=== PATIENT | male | born 1935 | race Caucasian/White ===

== ENCOUNTER 2018-07-15 15:43 | Emergency (ER) | payer MEDICARE, SELFPAY ==
[2018-07-15 15:44] VITALS: BP 165/87; PULSE 90; RESP 20; TEMP 36.3; O2SAT 97; BMI 22.4
[2018-07-15 16:36] LABS: Absolute Lymphocyte Count 1.96 X10^3/ul (0.83-4.51); Absolute Neutrophil Count 3.9 X10^3/uL (2.0-7.7); Basophil# 0.05 X10^3/uL; Basophil% 0.7 % (0-1); Eosinophil# 0.34 X10^3/uL; Eosinophils% 4.9 % (0-5); Hematocrit 42.6 % (40-54); Hemoglobin 13.2 g/dl (13.0-16.5); Lymphocyte # 1.96 X10^3/ul (4.0); Lymphocyte % 28.2 % (19-41); Mean Corpuscular Hgb 26.7 pg (27.0-32.0); Mean Corpuscular Volume 86.1 fL (80-94); Mean Platelet Vol. 10.5 fl (6.2-12.0); Monocyte% 10.1 % (0-10); Neutrophil # 3.89 X10^3/uL (2.7-7.7); Platelet Count 309 K/mm3 (150-450); RBC Distribution Width CV 13.8 % (11.6-14.6); RBC Distribution Width SD 43.5 fl (35.1-43.9); Red Blood Count 4.95 M/mm3 (4.6-6.2)
[2018-07-15 16:38] LABS: Bacteria 0 SEEN /hpf (None Seen); Mucous, Urine 0 SEEN /hpf (<or=2+); White Blood Cells 0 SEEN /hpf (0-5)
[2018-07-15 16:40] LABS: POSITIVE COUNT NO; POSITIVE DIFFERENTIAL NO; POSITIVE MORPHOLOGY NO
[2018-07-15 16:41] LABS: Color, Urine Yellow (Yellow); Glucose, Dipstick Normal (Normal); Ketone-Dipstick Negative (Negative); Leukocyte Esterase-Dipstick Negative /ul (Negative); Nitrite-Dipstick Negative (Negative); Occult Blood-Urine 250 /ul (Negative); Protein-Dipstick Negative (Negative); Urine Bilirubin Dipstick Negative (Negative); Urine Clarity Sl. Cloudy (Clear); Urine Urobilinogen Normal (Normal); Urine pH 6.5 (5.0 - 8.0)
[2018-07-15 16:47] LABS: Red Blood Cells-Urine > 100 SEEN /hpf (0-5); Squamous Epithelial Cells - UA 0-5 SEEN /hpf (0-5)
[2018-07-15 16:48] LABS: Amorphous Sediment 1+ URATE
[2018-07-15 16:49] LABS: Anion Gap 7 (5-15); BUN 18 mg/dL (7-18); BUN/Creat Ratio 21.8 RATIO (10-20); Calcium,Total 8.2 mg/dL (8.5-10.1); Chloride 104 mmol/L (98-107); Creatinine, Serum 0.82 mg/dL (0.70-1.30); EST Glomerular Filtration Rate 95 mL/min (>60); Est Glom Filt Rate - Afr Amer 115 mL/min (>60); Estimated Creatinine Clearance 63.76 ml/min; Glucose 109 mg/dL (74-106); Potassium 3.9 mmol/L (3.5-5.1); Sodium Level 137 mmol/L (136-145)
--- NOTE | 2018-07-15 17:06 | ED.VIS.GEN ---
History of Present Illness Chief Complaint: Complaint Detail of Chief Complaint: Gross hematuria Informant: Patient, Family Onset: Today Context: Sudden Onset Timing: Intermittent Quality: Urinated blood this morning Location: At home Current Severity: Unknown Maximum Severity: Moderate Worsened by: Nothing Relieved by: Nothing Associated Symptoms: Nothing Narrative: Patient is an 83-year-old male with history of benign prostatic hypertrophy who presents with gross painless hematuria. He denies back or flank pain. He denies testicular pain. He denies fever, chills night sweats. He has no other complaints. He is on no anticoagulant. He is not on Plavix. He does take a baby aspirin a day. He has seen Dr. Knox in the past. Prior similar symptoms: No Recent Illness/Hospitalization: No - Past Medical History (1) Benign prostatic hyperplasia Status: Chronic Past Medical History - Allergies and Home Meds Allergies/Adverse Reactions: Allergies No Known Allergies Allergy (Verified 07/15/18 15:44) Primary Care Physician: Hans Ochoa MD [Primary Care Provider] - Prior records reviewed: Yes Surgical History: noncontributory Lives: With Family Smoking Status: Never smoker Alcohol: None Drugs: None Review of Systems General: Denies: Chills, Fever, Sweats Eyes: Denies: Visual changes - bilaterally, Blurred vision - left, Diplopia ENT: Denies: Bilateral ear pain, Rhinorrhea, Sore throat Cardiovascular: Denies: Chest pain, Palpitations Respiratory: Denies: Dyspnea, Cough, Dyspnea on exertion Gastrointestinal: Denies: Abdominal pain, Nausea, Vomiting, Diarrhea, Melena, Hematochezia Genitourinary: Reports: Hematuria - One episode this morning. Denies: Dysuria, Frequency Musculoskeletal: Denies: Myalgias, Arthralgias, Back pain, Swelling, Extremity Pain Skin: Denies: Rash, Wounds Neurological: Denies: Headache, Weakness, Numbness Hematologic: Denies: Easy bruising, Easy bleeding Physical Exam Vital Signs/Narrative: Vital Signs Temp Pulse Resp BP Pulse Ox 07/15/18 15:44 97.3 F L 90 20 H 165/87 H 97 Inital Vital Signs reviewed: Yes General: Well nourished, Well developed, No Acute Distress, - - Patient is very hard of hearing. He is wearing his hearing aids. Head: Normocephalic, Atraumatic Eyes: Perrl, EOMI. Negative for: Pale conjunctiva ENT: Moist mucous membranes, No rhinorrhea Neck: Supple, Nontender, No lymphadenopathy, No JVD Cardiovascular: Regular rate, Regular rhythm, No murmurs, Normal S1, Normal S2 Respiratory: No distress, CTA bilaterally, Chest nontender Abdomen: Soft, Nontender, Nondistended, Normal bowel sounds, No masses Back: Nontender Skin: Normal color, No rash. Negative for: Cyanosis, Jaundice Neurological: Alert, Oriented x3, Cranial nerves II-XII grossly intact, Normal Strength, Normal Sensation Psychological: Normal affect Diagnostic/Tx/Re-eval Laboratory Results 07/15/18 07/15/18 07/15/18 16:24 16:24 16:34 WBC 7.0 RBC 4.95 Hgb 13.2 Hct 42.6 MCV 86.1 MCH 26.7 L MCHC 31.0 L RDW 13.8 RDW Differential 43.5 Plt Count 309 MPV 10.5 Immature Gran % (Auto) 0.100 Neut % (Auto) 56.0 Lymph % (Auto) 28.2 [place] % (Auto) 10.1 H Eos % (Auto) 4.9 Baso % (Auto) 0.7 Absolute Neuts (auto) 3.9 Absolute Lymphs (auto) 1.96 Total Counted Not Reportable Sodium 137 Potassium 3.9 Chloride 104 Carbon Dioxide 26.0 Anion Gap 7 BUN 18 Creatinine 0.82 Estim Creat Clear Calc 63.76 Est GFR (MDRD) Af Amer 115 Est GFR (MDRD) Non-Af 95 BUN/Creatinine Ratio 21.8 H Glucose 109 H Calcium 8.2 L Urine Color Yellow Urine Clarity Sl. Cloudy Urine pH 6.5 Ur Specific [place] 1.010 Urine Protein Negative Urine Glucose (UA) Normal Urine Ketones Negative Urine Occult Blood 250 H Urine Nitrite Negative Urine Bilirubin Negative Urine Urobilinogen Normal Ur Leukocyte Esterase Negative Urine RBC > 100 SEEN Urine WBC 0 SEEN Ur Squamous Epith Cells 0-5 SEEN Amorphous Sediment 1+ URATE Urine Bacteria 0 SEEN Urine Mucus 0 SEEN - Medical Decision Making With history of benign prostatic hypertrophy and gross hematuria most likely cause is related to his prostate. Since he has no constitutional symptoms or urinary symptoms other than gross blood will obtain UA, CBC and BMP to assess H&H, renal function and to determine if he has an infection or not. Since there is greater than 100 WBCs culture was sent. He was treated with a short course of Macrobid. He was referred to Dr. Jack for follow-up. ED Disposition - Plan for ED Patient: Disposition: Home or Assisted Living Diagnosis: Pyuria, History of hematuria, Benign prostatic hyperplasia Instructions: ED Hematuria Prescriptions: Nitrofurantoin Macrocrystals [Macrobid] 100 mg PO Q12 #10 cap Referrals: Hans Ochoa MD [Primary Care Provider] - Shlomo Jack MD [STAFF PHYSICIAN] - 3-5 Days
[2018-07-15] MEDS: Nitrofurantoin Macrocrystals 100 MG Capsule PO (17:18)
[2018-07-15 17:28] VITALS: RESP 18; O2SAT 97
== END 2018-07-15 17:29 | disposition home or self-care (01) ==
PROVIDERS: Emergency Provider Emergency Medicine; Family Provider Family Medicine; PCP Family Medicine
DX: N39.0 Urinary tract infection, site not specified (principal); R31.0 Gross hematuria; N40.0 Benign prostatic hyperplasia without lower urinary tract symptoms; Z79.82 Long term (current) use of aspirin; Z79.899 Other long term (current) drug therapy
CPT/HCPCS: 80048; 81001; 85025; 87086; 99283

== ENCOUNTER 2018-08-31 09:44 | Day surgery (SDC) | payer MEDICARE, SELFPAY ==
[2018-08-24 11:04] VITALS: BP 188/87; PULSE 91; RESP 16; TEMP 36.9; O2SAT 95; BMI 21.6
[2018-08-24 11:47] LABS: Bacteria 0 SEEN /hpf (None Seen); Mucous, Urine 0 SEEN /hpf (<or=2+); Red Blood Cells-Urine 0 SEEN /hpf (0-5); Squamous Epithelial Cells - UA 0 SEEN /hpf (0-5); White Blood Cells 0 SEEN /hpf (0-5)
[2018-08-24 12:41] LABS: Hematocrit 43.5 % (40-54); Hemoglobin 13.7 g/dl (13.0-16.5); Mean Corp Hgb Conc 31.5 g/gl (32-36); Mean Corpuscular Hgb 26.8 pg (27.0-32.0); Mean Platelet Vol. 10.9 fl (6.2-12.0); Platelet Count 366 K/mm3 (150-450); RBC Distribution Width CV 13.6 % (11.6-14.6); RBC Distribution Width SD 42.3 fl (35.1-43.9); Red Blood Count 5.12 M/mm3 (4.6-6.2); White Blood Count 6.5 K/mm3 (4.4-11.0)
[2018-08-24 12:48] LABS: Color, Urine Yellow (Yellow); Glucose, Dipstick Normal (Normal); Ketone-Dipstick Negative (Negative); Leukocyte Esterase-Dipstick Negative /ul (Negative); Nitrite-Dipstick Negative (Negative); Occult Blood-Urine Negative /ul (Negative); Protein-Dipstick Negative (Negative); Scan Indicated on CBC? Y/N NO; Urine Bilirubin Dipstick Negative (Negative); Urine Clarity Clear (Clear); Urine Urobilinogen Normal (Normal); Urine pH 6.5 (5.0 - 8.0)
[2018-08-24 13:02] LABS: Anion Gap 6 (5-15); BUN 23 mg/dL (7-18); Calcium,Total 8.6 mg/dL (8.5-10.1); Chloride 105 mmol/L (98-107); Creatinine, Serum 0.92 mg/dL (0.70-1.30); EST Glomerular Filtration Rate 84 mL/min (>60); Est Glom Filt Rate - Afr Amer 101 mL/min (>60); Estimated Creatinine Clearance 54.96 ml/min; Glucose 102 mg/dL (74-106); Potassium 3.9 mmol/L (3.5-5.1); Sodium Level 139 mmol/L (136-145)
--- NOTE | 2018-08-24 15:48 | SDCEKG_ITS ---
Test Reason : Blood Pressure : / mmHG Vent. Rate : 079 BPM Atrial Rate : 079 BPM P-R Int : 146 ms QRS Dur : 078 ms QT Int : 368 ms P-R-T Axes : 071 017 049 degrees QTc Int : 421 ms Sinus rhythm with marked sinus arrhythmia Otherwise normal ECG Confirmed by DONNELL BYNUM, COBY ([id number]), science editor KAILEE BRASHER ([id number]) on 08/27/2018 10:36:29 AM Referred By: Shlomo Jack Confirmed By:COBY JACOBO MD
[2018-08-31] VITALS (12 sets, daily range): BP systolic 118–163; BP diastolic 64–97; PULSE 87–100; RESP 14–18; TEMP 36.3–36.8; O2SAT 92–97; BMI 20.6
--- NOTE | 2018-08-31 11:50 | PROS_PTH ---
PATIENT: OMKAR LÓPEZ [place] [facility] [place][id number] AGE/SX: 83/M ROOM: RE08/31/[address]: Dr. Shlomo Jack MD : [id number] BED: DIS: 09/02/2018 SPEC #: [id number] RECD: 09/03/18 07:15 STATUS: ALESSANDRO HORTA #: [id number] JOSE DANIEL: 08/31/18 11:[address]: Shlomo Jack DEPT: SURGICAL PATHOLOGY RECD BY: Michael Bright ENTERED: 09/03/18 11:32 SP TYPE: TURP OTHR DR: Dr. Hans Ochoa MD Tissues: Prostate, NOS Procedures: Surgery Specimen Level IV HEADER OPERATION: Cysto, TUR, prostate, Olympus PRE-OP DIAGNOSIS: BPH with obstruction TISSUE SUBMITTED: Prostate chips MICROSCOPIC DIAGNOSIS Prostate chips, TUR: Benign prostatic hyperplasia, glandular and stromal type. Focal chronic inflammation and basal cell hyperplasia. SJ:linda 09/04/18 MICROSCOPIC DESCRIPTION Slides are reviewed. GROSS DESCRIPTION Received is one container labeled with the patient's name and designated prostate chips. The specimen consists of multiple irregular fragments of pink-porras, rubbery, soft tissue that in aggregate weigh 21 gm and measure in aggregate 7 x 7 x 3 cm. The entire specimen is submitted in 12 cassettes. / EARLINE:linda 09/03/18 TC:5 CPT: 10611
[2018-08-31] MEDS: Cefazolin 2 GM in 0.9% Normal Saline 100 ML IV (12:05)
[2018-08-31] MEDS: Lubricating Jelly 60 GM Tube 30 GM TOPICAL (12:09)
--- NOTE | 2018-08-31 13:19 | DCINST_ITS ---
Discharge Diet: No Restrictions Discharge Activity: Return to Normal Activity, May Not Drive - for 2 days. Call your doctor if your incision/area has: Continuous Slow Oozing, Sudden Increased Bleeding, Increased Pain/ Swelling, Increased Redness, Foul Smelling Discharge, Swelling at the incision site Instructions: Transurethral Resection of the Prostate (TURP): Home Recovery Allergies/Adverse Reactions: Allergies No Known Allergies Allergy (Verified 08/31/18 10:25) Medications to take at Discharge Dutasteride 0.5 mg PO QHS 07/15/18 Naproxen Sodium [Aleve] 220 mg PO PRN PRN 08/24/18 Ciprofloxacin [Cipro] 500 mg PO BID #20 tablet 08/31/18 Ibuprofen 600 mg PO Q6H PRN PRN #20 tablet 08/31/18 The following prescriptions were given: Ibuprofen 600 mg PO Q6H PRN PRN #20 tablet PRN Reason: Pain Ciprofloxacin [Cipro] 500 mg PO BID #20 tablet Primary Care Physician: Hans Ochoa MD [Primary Care Provider] - Test Results: Test results from this visit will be discussed in further detail at your follow- up appointment, if applicable. Please Follow Up With: Shlomo Jack MD When: in 2 weeks, please call to make an appointment.
--- NOTE | 2018-08-31 13:20 | PCM.OPRPT ---
Report of Operation Date of Procedure: 08/31/18 Pre-Operative Diagnosis: BPH with obstruction Post-Operative Diagnosis: The same Surgery/Procedure Performed:: Transurethral resection of the prostate Description of Surgical Findings:: 83-year-old male who had a TURP very long time ago significant regrowth of the prostate on the dome of the prostate a lot of obstructive tissue 83-year-old male taken back to the operating room at the smooth induction of anesthesia was placed in dorsolithotomy position the penis testicles are prepped and draped in usual sterile fashion placed a 24 [place] noncontinuous flow resectoscope into the bladder all the prostate tissue was coming from the roof I then did a resection of all the prostate tissue from the roof very middle resection it in the lateral austin and on the floor I resected back to the verumontanum then switched to the button vaporizing smooth out the resection had a really close resection to the sphincter but the sphincter looked intact, I then placed the catheter in the bladder continues bladder irrigation the urine is fairly bloody and he was taken back to the PACU in good condition plan to continue with bladder irrigation the urine is clear and then go home with a catheter to let it heal up. 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 Type of Anesthesia:: General Drains: 22fr 3 way - Admit VTE Documentation VTE Present on Admission: No VTE Mechan Device Prophylaxis: SCD's
[2018-08-31] MEDS: oxyCODONE 5 MG Tablet PO (14:10)
[2018-08-31] MEDS: 0.9% Normal Saline 1,000 ML 75 ML IV (14:50)
[2018-08-31] MEDS: Ciprofloxacin 400 MG/200 ML BAG 200 MG IV (18:05)
[2018-08-31] MEDS: Docusate Sodium 100 MG Capsule 200 MG PO (21:21)
[2018-09-01 03:20] VITALS: BP 128/59; PULSE 75; RESP 18; TEMP 36.7; O2SAT 97
[2018-09-01] MEDS: 0.9% Normal Saline 1,000 ML 75 ML IV ×2 (03:24→16:07)
[2018-09-01] MEDS: Acetaminophen 325 MG Tablet PO (04:25)
[2018-09-01] MEDS: Ciprofloxacin 400 MG/200 ML BAG 200 MG IV (05:04)
[2018-09-01 06:50] LABS: Hematocrit 33.7 % (40-54); Hemoglobin 10.5 g/dl (13.0-16.5); Mean Corp Hgb Conc 31.2 g/gl (32-36); Mean Corpuscular Hgb 26.5 pg (27.0-32.0); Mean Corpuscular Volume 85.1 fL (80-94); Platelet Count 229 K/mm3 (150-450); RBC Distribution Width CV 13.6 % (11.6-14.6); RBC Distribution Width SD 41.8 fl (35.1-43.9); Red Blood Count 3.96 M/mm3 (4.6-6.2); White Blood Count 6.1 K/mm3 (4.4-11.0)
[2018-09-01 06:51] LABS: Scan Indicated on CBC? Y/N NO
[2018-09-01 06:56] LABS: Anion Gap 4 (5-15); BUN 11 mg/dL (7-18); BUN/Creat Ratio 14.8 RATIO (10-20); Calcium,Total 7.5 mg/dL (8.5-10.1); Chloride 109 mmol/L (98-107); Creatinine, Serum 0.74 mg/dL (0.70-1.30); EST Glomerular Filtration Rate 107 mL/min (>60); Est Glom Filt Rate - Afr Amer 130 mL/min (>60); Estimated Creatinine Clearance 48.32 ml/min; Glucose 123 mg/dL (74-106); Potassium 3.7 mmol/L (3.5-5.1); Sodium Level 140 mmol/L (136-145)
[2018-09-01] MEDS: Pantoprazole Sodium 40 MG Tablet PO (09:03)
[2018-09-01] MEDS: Docusate Sodium 100 MG Capsule 200 MG PO (09:03)
[2018-09-01 09:41] VITALS: BP 112/48; PULSE 83; PULSE 90; RESP 16; TEMP 36.3; O2SAT 94
--- NOTE | 2018-09-01 11:18 | NURSING ---
1000 pt c/o abd pain, abd felt firm, hoff is not draining, flushed hoff and it started running again. no clots. However, urine returned and didn't c/o abd pain.
[2018-09-01 14:19] VITALS: BP 134/55; PULSE 99; RESP 18; TEMP 36.6; O2SAT 96
[2018-09-01 20:20] VITALS: BP 148/78; PULSE 95; RESP 20; TEMP 37.2; O2SAT 97
[2018-09-01 20:37] VITALS: PULSE 94
[2018-09-02 02:10] VITALS: BP 130/67; PULSE 100; RESP 20; TEMP 37.1; O2SAT 95
[2018-09-02] MEDS: 0.9% Normal Saline 1,000 ML 75 ML IV (06:28)
[2018-09-02 07:01] VITALS: O2SAT 94
[2018-09-02 09:02] VITALS: BP 147/79; PULSE 90; RESP 18; TEMP 36.8; O2SAT 97
[2018-09-02] MEDS: Pantoprazole Sodium 40 MG Tablet PO (09:13)
--- NOTE | 2018-09-02 13:25 | DS.PCM_ITS ---
Discharge Date and Diagnosis Date of Admission: 08/31/18 Date of Discharge: 09/02/18 - Secondary Discharge Diagnosis Chronic Problems Benign prostatic hyperplasia (Chronic) Hospital Course and Treatment Operations: TURP Procedures: None Summary of Care Provided: The patient is a 83 year old male with a large prostate and underwent a TURP on Monday was kept over for 48 hours for irrigation the urine today is now sanderson color but off irrigation he can go home with a catheter. - Physical Exam General: Alert, Oriented x3, Cooperative HEENT: Atraumatic, PERRLA, EOMI, Normocephalic Neck: Supple, No JVD, Negative Carotid Bruits Lungs: Clear to auscultation, Normal air movement Cardiovascular: Regular rate, No murmurs Abdomen: Bowel Sounds Present, Soft, Non Tender Extremities: No edema, Capillary Refill Less than 3 Seconds Skin: No rashes, No breakdown Musculoskeletal: No Tenderness to Palpation of Joints or Extremities Neurological: Cranial nerves II-XII grossly intact Psych/Mental Status: Normal Affect, Appropriate Vital Signs Temp Pulse Resp BP Pulse Ox 98.2 F 90 18 147/79 H 97 09/02/18 09:02 09/02/18 09:02 09/02/18 09:02 09/02/18 09:02 09/02/18 09:02 Oxygen Flow Rate (L/min) 2 Oxygen Delivery Method Room Air Weight: 58.967 kg Body Mass Index (BMI) 20.6 Intake and Output for Last 24 Hours 08/31/18 09/01/18 09/02/18 23:59 23:59 23:59 Intake Total 1521 / 1521 3726 / 3726 2829 / 2829 Output Total 3800 / 3800 9675 / 9675 1500 / 1500 Balance -2279 / -2279 -5949 / -5949 1329 / 1329 Discharge Diet: No Restrictions Discharge Activity: Return to Normal Activity, May Not Drive - for 2 days. Call your doctor if your incision/area has: Continuous Slow Oozing, Sudden Increased Bleeding, Increased Pain/ Swelling, Increased Redness, Foul Smelling Discharge, Swelling at the incision site Suture Line Care: Avoid Pulling/Pushing, Avoid Pinching/Bending Catheter: Silva to leg bag, Silva to large bag Drain: [place] Home Medications: Medications to take at Discharge Dutasteride 0.5 mg PO QHS 07/15/18 Naproxen Sodium [Aleve] 220 mg PO PRN PRN 08/24/18 Acetaminophen [Tylenol Extra Strength] 500 - 1,000 mg PO Q6H PRN PRN 08/31/18 Ibuprofen 600 mg PO Q6H PRN PRN #20 tablet 08/31/18 Following Prescrptions Were Given to Patient: Ibuprofen 600 mg PO Q6H PRN PRN #20 tablet PRN Reason: Pain Primary Care Physician: Hans Ochoa MD [Primary Care Provider] - Please Follow Up With: Shlomo Jack MD When: please call to make an appointment. Patient Instructions: Transurethral Resection of the Prostate (TURP): Home Recovery Medical Necessity - Tobacco Use Smoking Status: Current every day smoker Meaningful Use Info Meaningful Use Diagnoses (Choose all that apply): None applicable
[2018-09-02 14:16] VITALS: BP 140/72; PULSE 85; RESP 18; TEMP 36.7; O2SAT 96
== END 2018-09-02 14:18 | disposition home or self-care (01) ==
LOC: SDC 09:46 → AC 09:46 → MS3 12:32
PROVIDERS: Family Provider Family Medicine; PCP Family Medicine; Referring Provider Urology; Visit Provider Urology
PROC: (CPT 52630; principal; 2018-08-31 11:40)
DX: N41.1 Chronic prostatitis (principal); N40.1 Benign prostatic hyperplasia with lower urinary tract symptoms; N13.8 Other obstructive and reflux uropathy; R39.12 Poor urinary stream; R39.14 Feeling of incomplete bladder emptying; Z87.440 Personal history of urinary (tract) infections; Z87.891 Personal history of nicotine dependence
CPT/HCPCS: 00914; 52630; 36415; 80048; 81001; 85027; 86850; 86900; 87086; 87088; 88305; 93005; J7030; J7120; J0744; J2405

== ENCOUNTER 2018-09-04 01:43 | Emergency (ER) | payer MEDICARE, SELFPAY ==
[2018-08-31 15:39] VITALS: BMI 20.6
[2018-09-04 01:44] VITALS: BP 159/79; PULSE 91; RESP 18; TEMP 36.3; O2SAT 98; BMI 21.9
--- NOTE | 2018-09-04 03:01 | ED.DCSUM_ITS ---
- ER Visit Summary Date of Service: 09/04/18 Chief Complaint: Catheter problem History of Present Illness: The patient is a 83 M who presents due to concern for a Silva catheter problem. He recently had a TURP. His catheter was taped to his leg. When the tape came undone which seemed like the catheter pulled out a couple of centimeters. It is draining normally. He has no other complaints. Physical Examination: Afebrile vitals normal Heart regular Lungs clear Abdomen soft nontender Silva catheter in place draining appropriately Test Results: Not indicated Emergency Department Course and Treatment: Patient's catheter seems to be functioning appropriately. He has no pain. He was advised to follow-up with urology but I do not believe he needs a catheter changed at this point as it seems to be working appropriately. Treatment Plan: [] Disposition: Discharge Impression: Silva catheter check This note was generated with [employer] dictation software. It may contain incorrect words, spelling, and punctuation that were not noted in review of the chart prior to signing ED Disposition - Plan for ED Patient: Referrals: Hans Ochoa MD [Primary Care Provider] -
--- NOTE | 2018-09-04 03:01 | ED.DEP ---
ED Disposition - Plan for ED Patient: Instructions: ED Catheter Care Silva Referrals: Hans Ochoa MD [Primary Care Provider] -
[2018-09-04 03:15] VITALS: PULSE 80; RESP 16; O2SAT 97
== END 2018-09-04 03:16 | disposition home or self-care (01) ==
PROVIDERS: Emergency Provider Emergency Medicine; Family Provider Family Medicine; PCP Family Medicine
DX: Z46.6 Encounter for fitting and adjustment of urinary device (principal); Z87.891 Personal history of nicotine dependence
CPT/HCPCS: 99282

== ENCOUNTER → 2019-08-29 | Outpatient (CLI) | payer MEDICARE, SELFPAY | END | disposition home or self-care (01) | LOC: LABSPEC 16:46 | PROVIDERS: PCP Family Medicine; Referring Provider Urology; Visit Provider Urology | DX: N39.0 Urinary tract infection, site not specified (principal) | CPT/HCPCS: 87077; 87086; 87088; 87186 ==

== ENCOUNTER 2022-01-24 07:46 | Emergency (ER) | payer MEDICARE, SELFPAY ==
[2022-01-24 07:47] VITALS: BP 153/84; PULSE 89; RESP 16; TEMP 36.4; O2SAT 96; BMI 20.5
[2022-01-24 07:49] VITALS: BP 153/84; PULSE 89; RESP 16; TEMP 36.4; O2SAT 96
--- NOTE | 2022-01-24 08:15 | ED.VIS.GI ---
HPI HPI - GI History of Present Illness Chief Complaint: Constipation Narrative Narrative: 86-year-old male with abdominal pain for 6 days. The patient is very hard of hearing and is a poor informant but he is accompanied by family. He does point to his whole entire abdomen initially. He states the greatest pain is in the left side of his abdomen. He took Tylenol this morning and he states his pain is down to a 3. He has not had any nausea or vomiting. His family reports that he started complaining of this abdominal bloating cramping after eating pasta with [place] sauce last Monday. He told him that he thought the noodles were not cooked well enough. He has not had any vomiting. He felt a little constipated yesterday and took a stool softener. He was having bowel movements. He is passing gas. He has not had a fever or chills. He stated that he did have a headache this morning but this went away after taking Tylenol. He denies any urinary complaints. PFSH PFSH Medical History no medical history Home Medications dutasteride 0.5 mg capsule 0.5 mg PO QHS URINATION 07/15/18 [History Last Taken 08/29/18 22:00] naproxen sodium 220 mg capsule (Aleve) 220 mg PO PRN PRN Pain 08/24/18 [History Last Taken Unknown] acetaminophen 500 mg tablet 500 - 1,000 mg PO Q6H PRN PRN pain/fever 08/31/18 [History Last Taken Unknown] ibuprofen 600 mg tablet 600 mg PO Q6H PRN PRN Pain ##20 08/31/18 [Rx Last Taken Unknown] ciprofloxacin HCl 500 mg tablet 500 mg PO DAILY ##10 09/02/18 [Rx Last Taken Unknown] Allergy/AdvReac Type Severity Reaction Status Date / Time No Known Allergies Allergy Verified 01/24/22 07:49 Social History Smoking Status: Former smoker ROS ROS ED Constitutional Constitutional ED: Denies chills or fever(s) ENT ENT ED: Denies rhinorrhea or sore throat Cardiovascular Cardiovascular: Denies chest pain or palpitations Respiratory/Chest Respiratory/Chest: Denies cough or dyspnea Gastrointestinal Gastrointestinal: Reports abdominal pain and constipation; Denies diarrhea, nausea or vomiting Genitourinary Genitourinary ED: Denies dysuria or hematuria Musculoskeletal Musculoskeletal: Denies arthralgias or back pain Integumentary Denies abscess Neurologic Neurologic: Reports headache(s); Denies paresthesias or weakness Psychiatric Psychiatric: Denies anxiety or depression Endocrine Endocrinology: Denies polydipsia or polyphagia EXAM Physical Exam Const Vital Signs: 01/24/22 07:47 01/24/22 07:49 01/24/22 10:32 Temperature 97.6 F L 97.6 F L Temperature Source Temporal Temporal Pulse Rate 89 89 Respiratory Rate 16 16 16 Blood Pressure 153/84 H 153/84 H Blood Pressure Mean 107 107 Pulse Ox 96 96 Oxygen Delivery Method Room Air Room Air Positive well nourished General Appearance ED: NAD; Negative for pallor HEENT Reports moist mucous membranes normocephalic and atraumatic Eyes PERRL and EOMs intact bilaterally Resp normal respiratory effort and clear to auscultation bilaterally Auscultation: Negative for rales, rhonchi or wheezes Cardio regular rate and regular rhythm GI Auscultation: hypoactive bowel sounds Palpation: soft and tender LLQ and LUQ Back/Spine no CVA tenderness Neuro CN's II-XII intact bilaterally, moves all extremities and no sensory deficits noted Sensorium / Orientation: alert Motor Exam: strength 5/5 throughout Psych Psych Narrative: At baseline per Skin no wounds General Skin Exam: Negative for jaundice or pallor MDM MDM MDM Narrative Medical decision making narrative: Patient presenting with pain which he describes as fairly diffuse but is worse on the left side. He also had a headache. All of this got better with Tylenol. Blood work is obtained and his CBC shows he is leukopenic and lymphopenic. His renal function and electrolytes are normal. LFTs unremarkable. Lipase 137. Urinalysis negative for infection but does show a small amount of occult blood. Because of the way his lab work looked I ordered a rapid COVID and this was positive for COVID-19. CT of the abdomen pelvis was obtained and shows no acute abdominal process. I feel the patient's most likely source of symptoms is COVID-19. I will give prescription for Zofran for home. Patient discharged stable condition. Impression: 1. Acute abdominal pain 2. Headache 3. COVID-19 3. Leukopenia 4. Lymphopenia Lab Data Attestation: I reviewed the patient's lab results. Labs: Laboratory Results - last 24 hr 01/24/22 01/24/22 01/24/22 08:42 08:42 10:05 WBC 3.1 L RBC 4.59 L Hgb 12.7 L Hct 40.5 MCV 88.2 MCH 27.7 MCHC 31.4 L RDW Std Deviation 44.8 H RDW Coeff of Jorge A 13.9 Plt Count 255 MPV 10.7 Immature Gran % (Auto) 0.000 Neut % (Auto) 41.9 L Lymph % (Auto) 40.8 [place] % (Auto) 16.7 H Eos % (Auto) 0.3 Baso % (Auto) 0.3 Absolute Neuts (auto) 1.3 L Absolute Lymphs (auto) 1.25 Nucleated RBC % 0 Sodium 140 Potassium 3.8 Chloride 106 Carbon Dioxide 28.0 Anion Gap 6 BUN 12 Creatinine 0.76 Estim Creat Clear Calc 44.80 Est GFR (MDRD) Af Amer 125 Est GFR (MDRD) Non-Af 103 BUN/Creatinine Ratio 15.7 Glucose 106 Calcium 8.5 Total Bilirubin 0.30 AST 26 ALT 39 Alkaline Phosphatase 55 Total Protein 7.0 Albumin 3.0 L Globulin 4.0 Albumin/Globulin Ratio 0.8 L Lipase 137 Urine Color Yellow Urine Clarity Clear Urine pH 6.0 Ur Specific [place] 1.010 Urine Protein Negative Urine Glucose (UA) Normal Urine Ketones 15 H Urine Occult Blood 10 H Urine Nitrite Negative Urine Bilirubin Negative Urine Urobilinogen Normal Ur Leukocyte Esterase Negative Urine RBC 0-5 SEEN Urine WBC 0 SEEN Ur Squamous Epith Cells 0-5 SEEN Urine Bacteria 0 SEEN Urine Mucus 0 SEEN Radiography Diagnostic Testing: Clinical Impression(s) from Imaging Studies Abdomen/Pelvis CT 01/24/22 10:20 IMPRESSION: Normal enhanced CT of the abdomen and pelvis. Electronically Signed: Royce Gaines MD at 10:45 EDT , Discharge Plan Triage Chief Complaint: Constipation ED Provider: Jameson Mayes Dx/Rx/DC Orders Prescriptions: No Action dutasteride 0.5 MG capsule 0.5 mg PO QHS Label Comments: TAKE 1 CAPSULE BY MOUTH EVERY DAY naproxen sodium [Aleve] 220 MG capsule 220 mg PO PRN PRN (Reason: Pain) ibuprofen 600 MG tablet 600 mg PO Q6H PRN PRN (Reason: Pain) Qty: 20 0RF acetaminophen 500 MG tablet 500 - 1,000 mg PO Q6H PRN PRN (Reason: pain/fever) ciprofloxacin HCl 500 MG tablet 500 mg PO DAILY Qty: 10 0RF Primary Care Provider: Hans Ochoa Referrals: Hans Ochoa MD [Primary Care Provider] -
[2022-01-24] MEDS: Morphine 4 MG/ML Syringe IV (08:43)
[2022-01-24] MEDS: 0.9% Normal Saline 1,000 ML 1000 ML IV (08:43)
[2022-01-24] MEDS: Ondansetron 4 MG/2 ML Vial IV (08:43)
[2022-01-24 09:09] LABS: Absolute Lymphocyte Count 1.25 X10^3/uL (0.83-4.51); Absolute Neutrophil Count 1.3 X10^3/uL (2.0-7.7); Basophil# 0.01 X10^3/uL; Basophil% 0.3 % (0-1); Eosinophil# 0.01 X10^3/uL; Eosinophils% 0.3 % (0-5); Hematocrit 40.5 % (40-54); Hemoglobin 12.7 g/dL (13.0-16.5); Lymphocyte # 1.25 X10^3/ul (0.83-4.51); Lymphocyte % 40.8 % (19-41); Mean Corp Hgb Conc 31.4 g/dL (32-36); Mean Corpuscular Hgb 27.7 pg (27.0-32.0); Mean Corpuscular Volume 88.2 fL (80-94); Mean Platelet Vol. 10.7 fl (6.2-12.0); Monocyte# 0.51 X10^3/uL; Monocyte% 16.7 % (0-10); NRBC Flagged by Analyzer 0 % (0-5); Neutrophil # 1.28 X10^3/uL (2.7-7.7); Neutrophil % 41.9 % (47-70); Platelet Count 255 K/mm3 (150-450); RBC Distribution Width CV 13.9 % (11.6-14.6); RBC Distribution Width SD 44.8 fl (35.1-43.9); Red Blood Count 4.59 M/mm3 (4.6-6.2); White Blood Count 3.1 K/mm3 (4.4-11.0)
[2022-01-24 09:23] LABS: ALB/GLOB Ratio 0.8 RATIO (0.9-2.4); AST(SGOT) 26 U/L (15-37); Alanine Aminotransfer ALT/SGPT 39 U/L (16-61); Alkaline Phosphatase 55 U/L (45-117); Anion Gap 6 (5-15); BUN 12 mg/dL (7-18); BUN/Creat Ratio 15.7 RATIO (10-20); Calcium,Total 8.5 mg/dL (8.5-10.1); Chloride 106 mmol/L (98-107); Creatinine, Serum 0.76 mg/dL (0.70-1.30); EST Glomerular Filtration Rate 103 mL/min (>60); Est Glom Filt Rate - Afr Amer 125 mL/min (>60); Glucose 106 mg/dL (74-106); Lipase 137 U/L (73-393); Potassium 3.8 mmol/L (3.5-5.1); Sodium Level 140 mmol/L (136-145)
[2022-01-24 10:14] LABS: Bacteria 0 SEEN /hpf (None Seen); Mucous, Urine 0 SEEN /hpf (<or=2+); White Blood Cells 0 SEEN /hpf (0-5)
[2022-01-24 10:15] LABS: Color, Urine Yellow (Yellow); Glucose, Dipstick Normal (Normal); Ketone-Dipstick 15 mg/dl (Negative); Leukocyte Esterase-Dipstick Negative /ul (Negative); Nitrite-Dipstick Negative (Negative); Occult Blood-Urine 10 /ul (Negative); Protein-Dipstick Negative (Negative); Urine Bilirubin Dipstick Negative (Negative); Urine Clarity Clear (Clear); Urine Urobilinogen Normal (Normal)
--- NOTE | 2022-01-24 10:20 | CT_ITS ---
STUDY: CT ABDOMEN AND PELVIS WITH CONTRAST REASON FOR EXAM: Male, 86 years old. llq abdominal pain RADIATION DOSAGE (If Supplied By Facility): CTDIvol = ( 12.95 ) mGy, DLP = ( 689.81 ) mGycm TECHNIQUE: Transaxial images were obtained from the dome of the diaphragm to the symphysis pubis without oral contrast. IV 100mL Isovue-370 was administered. Sagittal and coronal images were reconstructed. Individualized dose optimization techniques were used for this CT. COMPARISON: None. FINDINGS: The visualized lung bases are unremarkable. The visualized portions of the heart are within normal limits. Normal liver. There are multiple gallstones. Normal spleen. Normal pancreas. Normal bilateral adrenal glands. Normal right kidney. Normal left kidney. Normal visualized stomach. Normal small intestine. Normal colon. There is non-visualization of the appendix. There is diffuse atherosclerotic calcification of the abdominal aorta, without a demonstrated aneurysm. Normal inferior vena cava. Normal retroperitoneum. Normal urinary bladder. Normal abdominal wall. Mild levoscoliosis of the thoracic lumbar spine. CT/Abdomen/Pelvis W IV Cont ONLY IMPRESSION: Normal enhanced CT of the abdomen and pelvis. Electronically Signed: Royce Gaines MD at 10:45 EDT ,
[2022-01-24 10:25] LABS: Red Blood Cells-Urine 0-5 SEEN /hpf (0-5); Squamous Epithelial Cells - UA 0-5 SEEN /hpf (0-5)
[2022-01-24 10:32] VITALS: RESP 16
[2022-01-24 11:31] VITALS: BP 134/84; PULSE 78; RESP 16; TEMP 36.9; O2SAT 99
== END 2022-01-24 11:32 | disposition home or self-care (01) ==
PROVIDERS: Emergency Provider Student in an Organized Health Care Education/Training Program; PCP Family Medicine; Visit Provider Student in an Organized Health Care Education/Training Program
DX: U07.1 COVID-19 (principal); R10.9 Unspecified abdominal pain; R51.9 Headache, unspecified; D72.810 Lymphocytopenia; Z87.891 Personal history of nicotine dependence
CPT/HCPCS: 74177; 80053; 81001; 83690; 85025; 87811; 96361; 96374; 96375; 99283; J7030; Q9967; A4216; J2405

== ENCOUNTER 2022-01-27 17:24 | Emergency (ER) | payer MEDICARE, SELFPAY ==
[2022-01-27 17:25] VITALS: BP 175/81; PULSE 97; RESP 14; TEMP 37.2; O2SAT 97; BMI 19.3
--- NOTE | 2022-01-27 17:52 | ED.VIS.GI ---
HPI HPI - GI History of Present Illness Chief Complaint: Constipation Narrative Narrative: 86-year-old male presenting with chief complaint of left-sided abdominal pain. He was here 3 days ago and had blood work and imaging done and his CAT scan was negative. His blood work was consistent with COVID-19 which he was also diagnosed with. His niece dropped him off and left him here. The patient is a poor informant and is hard of hearing and cannot give a good story. I called Sena's niece who stated that he had been complaining of constipation although he had also been having bowel movements. His symptoms have been intermittent. He is on Dulcolax and he had 2 bowel movements today. He has not had any nausea and he does have Zofran at home but has not needed it. The patient's niece stated that she was trying to get him set up as an outpatient with a primary care provider, and told the nurse on-call that he had a 3 out of 10 in pain and she was referred back to the emergency room. PFSH PFSH Home Medications dutasteride 0.5 mg capsule 0.5 mg PO QHS URINATION 07/15/18 [History Last Taken 08/29/18 22:00] naproxen sodium 220 mg capsule (Aleve) 220 mg PO PRN PRN Pain 08/24/18 [History Last Taken Unknown] acetaminophen 500 mg tablet 500 - 1,000 mg PO Q6H PRN PRN pain/fever 08/31/18 [History Last Taken Unknown] ibuprofen 600 mg tablet 600 mg PO Q6H PRN PRN Pain #20 tabs 08/31/18 [Rx Last Taken Unknown] ciprofloxacin HCl 500 mg tablet 500 mg PO DAILY ##10 09/02/18 [Rx Last Taken Unknown] ondansetron 4 mg disintegrating tablet 4 mg PO Q8H PRN nausea and vomiting #14 tabs 01/24/22 [Rx Last Taken Unknown] magnesium citrate (Citroma oral solution) 300 ml PO DAILY PRN constipation #296 mL 01/27/22 [Rx Last Taken Unknown] Allergy/AdvReac Type Severity Reaction Status Date / Time No Known Allergies Allergy Verified 01/27/22 17:25 Social History Smoking Status: Former smoker ROS ROS ED Constitutional Constitutional ED: Denies chills or fever(s) ENT ENT ED: Denies rhinorrhea or sore throat Cardiovascular Cardiovascular: Denies chest pain or palpitations Respiratory/Chest Respiratory/Chest: Denies cough or dyspnea Gastrointestinal Gastrointestinal: Reports abdominal pain and constipation; Denies nausea or vomiting Genitourinary Genitourinary ED: Denies dysuria or hematuria Musculoskeletal Musculoskeletal: Denies arthralgias or back pain Integumentary Denies abscess or Abrasions Neurologic Neurologic: Denies headache(s) or paresthesias Psychiatric Psychiatric: Denies anxiety or depression EXAM Physical Exam Const Vital Signs: 01/27/22 17:25 Temperature 98.9 F Temperature Source Temporal Pulse Rate 97 Respiratory Rate 14 Blood Pressure 175/81 H Blood Pressure Mean 112 Pulse Ox 97 Oxygen Delivery Method Room Air Positive well nourished General Appearance ED: NAD; Negative for pallor HEENT Reports moist mucous membranes normocephalic and atraumatic Eyes PERRL and EOMs intact bilaterally General Eye ED: Negative for pale conjunctiva or scleral icterus Resp normal respiratory effort and clear to auscultation bilaterally Auscultation: Negative for rales, rhonchi or wheezes Cardio regular rate and regular rhythm GI Palpation: tender LUQ Back/Spine no CVA tenderness Extremity full ROM Neuro CN's II-XII intact bilaterally, moves all extremities and no sensory deficits noted Sensorium / Orientation: alert Psych mental status grossly normal Skin General Skin Exam: Negative for jaundice or pallor MDM MDM MDM Narrative Medical decision making narrative: Patient presenting again with constipation although he is having bowel movements at home. His pain sounds intermittent and his niece Sena does state that he has had several bowel movements although she is not sure how large they were. The patient has not had any urinary problems. Although he was diagnosed with COVID is not had fever, chills. Sena his niece does express that he had some looser stools with it was not quite diarrhea. No melena or hematochezia. After talking with her at length over the phone I recommended magnesium citrate for him and sent a prescription to the pharmacy. She states she will come pick him up. I do not believe he needs repeat lab work and imaging as it sounds like he is eating and drinking well and is having bowel movements. Patient is discharged home in stable condition. Impression: 1. Constipation 2. Abdominal pain Lab Data Attestation: I reviewed the patient's lab results. Discharge Plan Triage Chief Complaint: Constipation ED Provider: Jameson Mayes Dx/Rx/DC Orders Instructions: ED Constipation (Adult) Prescriptions: New magnesium citrate [Citroma] Solution 300 ml PO DAILY PRN (Reason: constipation) Qty: 296 0RF Rx Instructions: drink 1/2 bottle and if no bowel movement in 4 hours drink the second half bottle No Action dutasteride 0.5 MG capsule 0.5 mg PO QHS Label Comments: TAKE 1 CAPSULE BY MOUTH EVERY DAY naproxen sodium [Aleve] 220 MG capsule 220 mg PO PRN PRN (Reason: Pain) ibuprofen 600 MG tablet 600 mg PO Q6H PRN PRN (Reason: Pain) Qty: 20 0RF acetaminophen 500 MG tablet 500 - 1,000 mg PO Q6H PRN PRN (Reason: pain/fever) ciprofloxacin HCl 500 MG tablet 500 mg PO DAILY Qty: 10 0RF ondansetron 4 mg tablet,disintegrating 4 mg PO Q8H PRN (Reason: nausea and vomiting) Qty: 14 0RF Primary Care Provider: Hans Ochoa Referrals: Hans Ochoa MD [Primary Care Provider] - Disposition Disposition: Home, Self Care
== END 2022-01-27 18:18 | disposition home or self-care (01) ==
PROVIDERS: Emergency Provider Student in an Organized Health Care Education/Training Program; PCP Family Medicine; Visit Provider Student in an Organized Health Care Education/Training Program
DX: K59.00 Constipation, unspecified (principal); R10.9 Unspecified abdominal pain; Z87.891 Personal history of nicotine dependence; H91.90 Unspecified hearing loss, unspecified ear
CPT/HCPCS: 99282

== ENCOUNTER 2022-03-30 05:51 | Day surgery (SDC) | payer MEDICARE, SELFPAY ==
[2022-03-30] VITALS (7 sets, daily range): BP systolic 159–176; BP diastolic 73–90; PULSE 70–81; RESP 16–18; TEMP 36.3–36.8; O2SAT 97–98; BMI 21.3
[2022-03-30] MEDS: Lactated Ringers 1,000 ML 15 ML IV (06:40)
[2022-03-30] MEDS: Cefazolin 2 GM in 0.9% Normal Saline 100 ML IV (08:00)
--- NOTE | 2022-03-30 08:00 | PCM.HP.STD ---
HPI - General HPI Narrative OMKAR LÓPEZ, is a 87 M who presents presents for a direct vision internal urethrotomy of a urethral stricture PFSH Medical History (Updated 03/23/22 @ 13:54 by Lorri Tang) Ambulates with cane Difficulty chewing Former smoker Loss of hearing Wears dentures Wears glasses Wears hearing aid Home Medications acetaminophen 500 mg tablet 500 - 1,000 mg PO Q6H PRN PRN pain/fever 08/31/18 [History Last Taken Unknown] ibuprofen 600 mg tablet 600 mg PO Q6H PRN PRN Pain #20 tabs 08/31/18 [Rx Last Taken Unknown] finasteride 5 mg tablet (Proscar) 5 mg PO DAILY 03/23/22 [History Last Taken Unknown] tamsulosin 0.4 mg capsule (Flomax) 0.4 mg PO QHS 03/30/22 [History Last Taken Unknown] Allergy/AdvReac Type Severity Reaction Status Date / Time No Known Allergies Allergy Verified 03/30/22 06:27 Surgical History (Updated 03/23/22 @ 13:54 by Lorri Tang) History of hernia surgery (~1998) History of left knee surgery (~1956) History of transurethral resection of prostate (~2018) Social History Smoking Status: Former smoker Vital Signs Vital Signs Vital Signs: 03/30/22 06:28 Temperature 98.3 F Temperature Source Temporal Pulse Rate 81 Respiratory Rate 18 Blood Pressure 163/73 H Blood Pressure Mean 103 Blood Pressure Source Monitor Blood Pressure Position Semi-Fowlers Blood Pressure Location Left Arm Pulse Ox 98 Oxygen Delivery Method Room Air Weight Weight: 60 kg Body Mass Index (BMI) 21.3
--- NOTE | 2022-03-30 08:01 | DCINST_ITS ---
Discharge Instructions Diet Discharge Diet: No restrictions, Light diet - advance as tolerated and Soft diet Activity Discharge Activity: Return to Normal Activity Dressing / Incision Catheter: Silva to leg bag Drain: [place] Follow Up Care Please Follow Up With: Shlomo Jack MD When: 2 weeks, call for appt Test Results: Test results from this visit will be discussed in further detail at your follow- up appointment, if applicable. Discharge Plan Admission Primary Reason for Your Visit: DVIU Attending Provider: Shlomo Jack Primary Care Provider: Hans Ochoa Discharge Orders/Prescriptions Prescriptions: Continued ibuprofen 600 MG tablet 600 mg PO Q6H PRN PRN (Reason: Pain) Qty: 20 0RF acetaminophen 500 MG tablet 500 - 1,000 mg PO Q6H PRN PRN (Reason: pain/fever) finasteride [Proscar] 5 mg tablet 5 mg PO DAILY tamsulosin [Flomax] 0.4 mg Capsule 0.4 mg PO QHS Referrals / Follow Up: Shlomo Jack MD [Med Staff - Active Staff] - Hans Ochoa MD [Primary Care Provider] - Disposition Disposition (needs filled in before D/C Order can be placed): Home, Self Care
[2022-03-30] MEDS: Lidocaine Jelly 2% 20 ML Syringe (URO-JET) 1 APPLIC (08:05)
[2022-03-30] MEDS: Lubricating Jelly 60 GM Tube 30 GM (08:05)
--- NOTE | 2022-03-30 08:15 | PCM.OPRPT ---
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 The patient has a urethral stricture in the mid urethra and working to proceed with a direct vision internal urethrotomy. Patient understands that it is possible that the scar tissue may come back and that the success rate of this procedures in the long-term is about 60 to 70%. We talked about the possibility of bleeding or infection from the procedure. The patient also understands that a catheter will be necessary after the procedure for about 10 days depending on the situation. After long discussion with the patient in preoperative area describing the procedure and what the patient's expect afterwards, the patient's questions were addressed and working to proceed with the surgery, the consent form was signed. The patient was taken back to the operating room after induction of anesthesia was placed in dorsolithotomy position. The genitals and urethra are prepped and draped in the usual sterile fashion. Then using a DVIU set the meatus was gently dilated from 18-20 [place]. Then went into the urethra with a urethrotome and identified the pinpoint stricture in the mid urethra. A 0.038 Glidewire was used to passed through the stricture to ensure access to the bladder and the prostate. The Glidewire was secured to the drapes. Then using a cold knife the knife was deployed from the urethrotome and then at the 12 o'clock position the scar tissue was cut until the stricture was cut open completely. I was then able to navigate the scope through the scar tissue without any resistance. Then after this I was able to navigate past the dense scar tissue into the bulbar urethra through the sphincter and passed the prostate. 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 Inside the bladder the bladder and prostate was inspected. I then pulled out the urethrotome and then a well-lubricated 20 [place] catheter was advanced into the bladder with clear return of urine. 10 cc were put into the balloon and the catheter was secured to the leg bag. Hopefuly opening up the stricture will improve his bladder emptying we could also consider a repeat TURP? Surgeon: Shlomo Jack Type of Anesthesia: MAC and Topical Anesth Drains: 20 Fr Admit VTE Documentation VTE Present on Admission: No VTE Mechan Device Prophylaxis: SCD's VTE Pharm Prophylaxis ordered?: No
[2022-03-30] MEDS: Acetaminophen 325 MG Tablet 650 MG PO (09:11)
== END 2022-03-30 10:00 | disposition home or self-care (01) ==
LOC: SDC 05:54 → AC 05:55
PROVIDERS: PCP Family Medicine; Referring Provider Urology; Visit Provider Urology
PROC: 0T7D8ZZ Dilation of Urethra, Via Natural or Artificial Opening Endoscopic (ICD-10-PCS; CPT 52276; principal; 2022-03-30 07:20)
DX: N35.919 Unspecified urethral stricture, male, unspecified site (principal); Z87.891 Personal history of nicotine dependence; Z86.16 Personal history of COVID-19
CPT/HCPCS: 52276; J7120; C1769

== ENCOUNTER 2023-02-03 17:44 | Emergency (ER) | payer MEDICARE, SELFPAY ==
[2023-02-03 17:45] VITALS: BP 123/111; PULSE 117; RESP 18; TEMP 36.2; O2SAT 94
[2023-02-03 18:25] LABS: Absolute Lymphocyte Count 3.08 X10^3/uL (0.83-4.51); Absolute Neutrophil Count 3.2 X10^3/uL (2.0-7.7); Basophil# 0.03 X10^3/uL; Basophil% 0.4 % (0-1); Eosinophil# 0.18 X10^3/uL; Eosinophils% 2.4 % (0-5); Hematocrit 41.4 % (40-54); Hemoglobin 12.4 g/dL (13.0-16.5); Lymphocyte # 3.08 X10^3/ul (0.83-4.51); Lymphocyte % 41.7 % (19-41); Mean Corpuscular Hgb 26.6 pg (27.0-32.0); Mean Corpuscular Volume 88.8 fL (80-94); Mean Platelet Vol. 10.6 fl (6.2-12.0); Monocyte# 0.93 X10^3/uL; Monocyte% 12.6 % (0-10); NRBC Flagged by Analyzer 0 % (0-5); Neutrophil # 3.15 X10^3/uL (2.7-7.7); Neutrophil % 42.8 % (47-70); Platelet Count 275 K/mm3 (150-450); RBC Distribution Width CV 14.2 % (11.6-14.6); RBC Distribution Width SD 45.7 fl (35.1-43.9); Red Blood Count 4.66 M/mm3 (4.6-6.2); White Blood Count 7.4 K/mm3 (4.4-11.0)
--- NOTE | 2023-02-03 18:25 | RAD_ITS ---
INDICATION: chest pain EXAMINATION/TECHNIQUE: X-RAY - XR Chest 1 View COMPARISON: FINDINGS: LINES/DEVICES: None. LUNGS: No consolidation, edema or effusion. No pneumothorax. MEDIASTINUM AND CARDIOVASCULAR STRUCTURES: Cardiac silhouette not enlarged. Central airways and mediastinal contour are unremarkable. BONES AND SOFT TISSUES: Scoliosis. RAD/Chest 1 View (Portable) IMPRESSION: No radiographic evidence of acute cardiopulmonary disease. Electronically Signed: Hilario Redd DO at 18:46 EDT Reading Location ID and State: [facility] / [place] Tel [phone], Service support ,
--- NOTE | 2023-02-03 18:25 | CT_ITS ---
STUDY: CT BRAIN WITHOUT CONTRAST REASON FOR EXAM: Male, 87 years old. Head injury RADIATION DOSAGE (If Supplied By Facility): CTDIvol = ( 44.99 ) mGy, DLP = ( 846.73 ) mGycm TECHNIQUE: Transaxial CT imaging of the brain was performed without administration of intravenous contrast material. Individualized dose optimization techniques were used for this CT. COMPARISON: No relevant priors. FINDINGS: Normal soft tissue structures. Normal calvarium. Prominent ventricles and extra-axial spaces with mild atrophy. Mild white matter microangiopathic ischemic changes of the cerebral hemispheres. Normal basal ganglia and thalami. Normal brainstem. Normal cerebellum. There is no intracranial hemorrhage. There are no findings of an acute ischemic infarction. Normal visualized paranasal sinuses. CT/Brain/Head without Contrast IMPRESSION: Atrophy and age-related changes of the brain. Electronically Signed: Hilario Redd DO at 18:43 EDT ,
[2023-02-03] MEDS: Meclizine HCl 25 MG Tablet PO (18:40)
[2023-02-03 18:46] LABS: Anion Gap 3 (5-15); BUN 21 mg/dL (7-18); BUN/Creat Ratio 23.1 RATIO (10-20); Calcium,Total 8.6 mg/dL (8.5-10.1); Chloride 108 mmol/L (98-107); Creatinine, Serum 0.91 mg/dL (0.70-1.30); EST Glomerular Filtration Rate 84 mL/min (>60); Est Glom Filt Rate - Afr Amer 102 mL/min (>60); Glucose 115 mg/dL (74-106); Potassium 3.9 mmol/L (3.5-5.1); Sodium Level 137 mmol/L (136-145); Troponin-I HS 7 pg/mL (3.0-78.0)
[2023-02-03 19:02] LABS: BNP,B-Type NATRIURETIC PEPTIDE 57.3 pg/mL (0-100)
[2023-02-03 19:34] VITALS: BP 165/85; PULSE 85; RESP 20; O2SAT 93
[2023-02-03] MEDS: 0.9% Normal Saline (1000mL) 1,000 ML 999 ML IV (19:37)
[2023-02-03 19:48] LABS: Mucous, Urine 0 SEEN /hpf (<or=2+); Red Blood Cells-Urine 0 SEEN /hpf (0-5); Squamous Epithelial Cells - UA 0 SEEN /hpf (0-5)
[2023-02-03 19:49] LABS: Color, Urine Yellow (Yellow); Glucose, Dipstick Normal (Normal); Ketone-Dipstick Negative (Negative); Leukocyte Esterase-Dipstick 500 /ul (Negative); Nitrite-Dipstick Positive (Negative); Occult Blood-Urine 50 /ul (Negative); Protein-Dipstick 30 mg/dl (Negative); Urine Bilirubin Dipstick Negative (Negative); Urine Clarity Cloudy (Clear); Urine Urobilinogen Normal (Normal); Urine pH 6.5 (5.0 - 8.0)
[2023-02-03 19:59] LABS: Bacteria RARE /hpf (None Seen); White Blood Cells >100 SEEN /hpf (0-5)
[2023-02-03 20:00] VITALS: BP 148/77; PULSE 85; RESP 18; O2SAT 95
[2023-02-03] MEDS: Ceftriaxone 1 GM/50 ML BAG IV (20:17)
[2023-02-03 20:18] VITALS: BMI 24.9
[2023-02-03 22:00] VITALS: RESP 18
--- NOTE | 2023-02-03 22:11 | EDS_ITS ---
HPI History of Present Illness Chief Complaint: Dizziness Narrative Narrative: 87-year-old male presenting with dizziness. He describes it as vertiginous. It started yesterday in the morning upon awakening. He describes it as the room spinning and he was unable to walk to the restroom and fell. He denies head injury or LOC. Patient has had intermittent dizziness since then and is described it all as vertiginous in nature. He had associated nausea at some points. It is currently completely resolved. Denies any chest pain or shortness of breath. No nausea or vomiting. No fever or chills. He has history of UTI and BPH but has not had any urinary symptoms specifically PFSH PFS Medical History Ambulates with cane Difficulty chewing Former smoker Loss of hearing Wears dentures Wears glasses Wears hearing aid Home Medications acetaminophen 500 mg tablet 500 - 1,000 mg PO Q6H PRN PRN pain/fever 08/31/18 [History Last Taken Unknown] ibuprofen 600 mg tablet 600 mg PO Q6H PRN PRN Pain #20 tabs 08/31/18 [Rx Last Taken Unknown] finasteride 5 mg tablet (Proscar) 5 mg PO DAILY 03/23/22 [History Last Taken Unknown] ciprofloxacin HCl 250 mg tablet (Cipro) 250 mg PO DAILY #20 tabs 03/30/22 [Rx Last Taken Unknown] tamsulosin 0.4 mg capsule (Flomax) 0.4 mg PO QHS 03/30/22 [History Last Taken Unknown] cephalexin 500 mg capsule 500 mg PO TID 5 days #15 caps 02/03/23 [Rx Last Taken Unknown] meclizine 25 mg tablet 25 mg PO TID PRN dizziness #30 tabs 02/03/23 [Rx Last Taken Unknown] Allergy/AdvReac Type Severity Reaction Status Date / Time No Known Allergies Allergy Verified 03/30/22 06:27 Surgical History History of hernia surgery (~1998) History of left knee surgery (~1956) History of transurethral resection of prostate (~2018) Social History Smoking Status: Former smoker ROS ROS ED Constitutional Constitutional ED: Denies chills or fever(s) Eyes Eyes: Reports other Details: Vertiginous dizziness ; Denies change in vision or diplopia ENT ENT ED: Denies rhinorrhea or sore throat Cardiovascular Cardiovascular: Denies chest pain or palpitations Respiratory/Chest Respiratory/Chest: Denies cough or dyspnea Gastrointestinal Gastrointestinal: Reports nausea; Denies abdominal pain Genitourinary Genitourinary ED: Denies dysuria or hematuria Musculoskeletal Musculoskeletal: Denies arthralgias or back pain Integumentary Denies abscess Neurologic Neurologic: Reports headache(s); Denies paresthesias or weakness EXAM Physical Exam Const Vital Signs: 02/03/23 17:45 02/03/23 19:34 02/03/23 20:00 Temperature 97.2 F L Temperature Source Temporal Pulse Rate 117 H 85 85 Respiratory Rate 18 20 H 18 Blood Pressure 123/111 H 165/85 H 148/77 H Blood Pressure Mean 115 111 100 Pulse Ox 94 93 95 Oxygen Delivery Method Room Air Room Air Room Air Positive well nourished General Appearance ED: NAD HEENT Reports moist mucous membranes HEENT Narrative: Positive [place]-Hallpike with nystagmus noted. Eyes PERRL and EOMs intact bilaterally Chest Wall inspection of chest normal Resp normal respiratory effort and clear to auscultation bilaterally Auscultation: Negative for rales, rhonchi or wheezes Cardio Rate: tachycardic Rhythm: abnormal rhythm irregularly irregular GI normal to inspection, nondistended, normoactive bowel sounds Extremity normal to inspection General Extremety ED: Negative for edema or tenderness General Extremity: Negative for edema Neuro oriented x3 and CN's II-XII intact bilaterally Sensorium / Orientation: alert Motor Exam: strength 5/5 throughout Psych mental status grossly normal Skin no rashes or lesions noted and no wounds MDM MDM MDM Narrative Medical decision making narrative: Presenting with vertiginous dizziness. He does have associated nausea. He denies any other symptoms. Patient has positive [place]-Hallpike however when I looked up at the monitor after performing [place]-Hallpike patient is in the tachycardic irregular rhythm. I obtained an EKG which shows A-fib 118 bpm. Includes benign positional vertigo central vertigo, acute coronary syndrome, A- fib, dehydration, electrode normalities, UTI, pneumonia, CHF. CBC will be obtained to assess white blood cell count, hemoglobin, platelets. BMP to assess renal function electrolytes. High-sensitivity troponin EKG will be obtained assess for ischemia changes and dysrhythmia. Chest x-ray to rule out pneumonia. Urinalysis to assess for UTI. BNP to assess for CHF. Patient was given Normal saline. I did attempt to give him some Cardizem however his heart rhythm was converted to a sinus rhythm. I repeated an EKG and his heart rate is now 87 bpm and is a sinus rhythm with occasional PVCs my interpretation. Cardizem was held. CBC shows normal blood cell count of 7.4. Hemoglobin stable at 12.4. Platelets 1 which is 45. Renal function and electrolytes within normal limits. High-sensitivity troponin 7. BNP is 57.3. Urinalysis consistent with UTI and he was given a dose of Rocephin. Urine culture was sent. Patient initially t reated with meclizine for his dizziness and feels much better. Patient was discussed with Dr. Ochoa his primary care physician. He recommended holding any rate controlling medicines at this point because his heart rate is normal. He did not recommend doing any Eliquis given the patient's fall risk with his vertigo and he already fell once. We will keep him on meclizine. He is given Keflex for home for his UTI. Dr. Ochoa will follow him up in the office for his A-fib. Patient's family already states that he has an appointment for Monday and he will make this. I counseled them to continue to monitor his pulse ox and his heart rate. Presenting abnormalities of the return to the ER. Patient amenable to discharge at this time. Impression: 1. Vertigo 2. New onset A-fib 3. UTI 4. Fall Lab Data Labs: Laboratory Results - last 24 hr 02/03/23 02/03/23 18:20 19:30 WBC 7.4 RBC 4.66 Hgb 12.4 L Hct 41.4 MCV 88.8 MCH 26.6 L MCHC 30.0 L RDW Std Deviation 45.7 H RDW Coeff of Jorge A 14.2 Plt Count 275 MPV 10.6 Immature Gran % (Auto) 0.100 Neut % (Auto) 42.8 L Lymph % (Auto) 41.7 H Edwards % (Auto) 12.6 H Eos % (Auto) 2.4 Baso % (Auto) 0.4 Absolute Neuts (auto) 3.2 Absolute Lymphs (auto) 3.08 Nucleated RBC % 0 Sodium 137 Potassium 3.9 Chloride 108 H Carbon Dioxide 26.0 Anion Gap 3 L BUN 21 H Creatinine 0.91 Est GFR (MDRD) Af Amer 102 Est GFR (MDRD) Non-Af 84 BUN/Creatinine Ratio 23.1 H Glucose 115 H Calcium 8.6 Troponin I High Sens 7 B-Natriuretic Peptide 57.3 Urine Color Yellow Urine Clarity Cloudy Urine pH 6.5 Ur Specific [place] 1.010 Urine Protein 30 H Urine Glucose (UA) Normal Urine Ketones Negative Urine Occult Blood 50 H Urine Nitrite Positive H Urine Bilirubin Negative Urine Urobilinogen Normal Ur Leukocyte Esterase 500 H Urine RBC 0 SEEN Urine WBC >100 SEEN Ur Squamous Epith Cells 0 SEEN Urine Bacteria RARE Urine Mucus 0 SEEN Radiography Diagnostic Testing: Clinical Impression(s) from Imaging Studies Brain CT 02/03/23 18:25 IMPRESSION: Atrophy and age-related changes of the brain. Electronically Signed: Hilario Redd DO at 18:43 EDT Reading Location ID and State: [facility] / [place] Tel [phone], Service support , Chest X-Ray 02/03/23 18:25 IMPRESSION: No radiographic evidence of acute cardiopulmonary disease. Electronically Signed: Hilario Redd DO at 18:46 EDT , Discharge Plan Triage Chief Complaint: Dizziness ED Provider: Jameson Mayes Dx/Rx/DC Orders Instructions: ED AFIB, ED BPV Vertigo, ED Urinary Tract Infections in Men Prescriptions: New cephalexin 500 mg capsule 500 mg PO TID 5 Days Qty: 15 0RF meclizine 25 mg tablet 25 mg PO TID PRN (Reason: dizziness) Qty: 30 0RF No Action ibuprofen 600 MG tablet 600 mg PO Q6H PRN PRN (Reason: Pain) Qty: 20 0RF acetaminophen 500 MG tablet 500 - 1,000 mg PO Q6H PRN PRN (Reason: pain/fever) finasteride [Proscar] 5 mg tablet 5 mg PO DAILY tamsulosin [Flomax] 0.4 mg Capsule 0.4 mg PO QHS ciprofloxacin HCl [Cipro] 250 mg tablet 250 mg PO DAILY Qty: 20 0RF Primary Care Provider: Hans Ochoa Referrals: Hans Ochoa MD [Primary Care Provider] - Disposition Disposition: Home, Self Care
== END 2023-02-03 22:41 | disposition home or self-care (01) ==
PROVIDERS: Emergency Provider Student in an Organized Health Care Education/Training Program; PCP Family Medicine; Visit Provider Student in an Organized Health Care Education/Training Program
DX: R42 Dizziness and giddiness (principal); I50.9 Heart failure, unspecified; I48.91 Unspecified atrial fibrillation; N39.0 Urinary tract infection, site not specified; Z87.891 Personal history of nicotine dependence; W19.XXXA Unspecified fall, initial encounter
CPT/HCPCS: 70450; 71045; 80048; 81001; 83880; 84484; 85025; 87077; 87086; 87088; 87186; 93005; 96365; 96366; 99284; J7030; A4216

== ENCOUNTER 2023-02-25 02:30 | Emergency (ER) | payer MEDICARE, SELFPAY ==
[2023-02-25 02:31] VITALS: BP 184/95; PULSE 108; RESP 16; TEMP 36.4; O2SAT 99; BMI 23.3
[2023-02-25] MEDS: Orphenadrine 60 MG/2 ML Ampul IM (03:19)
[2023-02-25] MEDS: Ketorolac 15 MG/ML Vial IM (03:20)
[2023-02-25 04:33] LABS: Bacteria 0 SEEN /hpf (None Seen); Color, Urine Yellow (Yellow); Glucose, Dipstick Normal (Normal); Ketone-Dipstick Negative (Negative); Leukocyte Esterase-Dipstick Negative /ul (Negative); Mucous, Urine 0 SEEN /hpf (<or=2+); Nitrite-Dipstick Negative (Negative); Occult Blood-Urine 25 /ul (Negative); Protein-Dipstick Negative (Negative); Red Blood Cells-Urine 0 SEEN /hpf (0-5); Squamous Epithelial Cells - UA 0 SEEN /hpf (0-5); Urine Bilirubin Dipstick Negative (Negative); Urine Clarity Clear (Clear); Urine Urobilinogen Normal (Normal); White Blood Cells 0 SEEN /hpf (0-5)
--- NOTE | 2023-02-25 05:02 | EX.ED.DYSGE1 ---
HPI History of Present Illness Chief Complaint: Back Informant: patient and family Narrative Narrative: Patient is an 87-year-old male with past medical history of BPH. He states that he was recently treated for UTI. He reports that this evening he noticed some pain along the left back or left side. He states it is worse with motion. He denies any dysuria or hematuria. He states that he is able to still urinate. He denies any excessive activity or trauma. He states however that the pain is not improved with [id number] medication and he is concerned that he may potentially have a repeat UTI and therefore was brought in for evaluation. [facility] Medical History Ambulates with cane Difficulty chewing Former smoker Loss of hearing Wears dentures Wears glasses Wears hearing aid Home Medications acetaminophen 500 mg tablet 500 - 1,000 mg PO Q6H PRN PRN pain/fever 08/31/18 [History Last Taken Unknown] ibuprofen 600 mg tablet 600 mg PO Q6H PRN PRN Pain #20 tabs 08/31/18 [Rx Last Taken Unknown] finasteride 5 mg tablet (Proscar) 5 mg PO DAILY 03/23/22 [History Last Taken Unknown] ciprofloxacin HCl 250 mg tablet (Cipro) 250 mg PO DAILY #20 tabs 03/30/22 [Rx Last Taken Unknown] tamsulosin 0.4 mg capsule (Flomax) 0.4 mg PO QHS 03/30/22 [History Last Taken Unknown] cephalexin 500 mg capsule 500 mg PO TID 5 days #15 caps 02/03/23 [Rx Last Taken Unknown] meclizine 25 mg tablet 25 mg PO TID PRN dizziness #30 tabs 02/03/23 [Rx Last Taken Unknown] methocarbamol 500 mg tablet 500 mg PO 4X/DAY PRN PRN Muscle pain/spasm #40 tabs 02/25/23 [Rx Last Taken Unknown] Allergy/AdvReac Type Severity Reaction Status Date / Time No Known Allergies Allergy Verified 02/25/23 02:31 Surgical History History of hernia surgery (~1998) History of left knee surgery (~1956) History of transurethral resection of prostate (~2018) Social History Smoking Status: Former smoker ROS ROS ED Constitutional Constitutional ED: Denies chills or fever(s) ENT ENT ED: Denies sore throat Cardiovascular Cardiovascular: Denies chest pain Respiratory/Chest Respiratory/Chest: Denies cough or dyspnea Gastrointestinal Gastrointestinal: Denies abdominal pain, diarrhea, nausea or vomiting Genitourinary Genitourinary ED: Denies dysuria or hematuria Musculoskeletal Musculoskeletal: Reports back pain Integumentary Denies rash Neurologic Neurologic: Denies headache(s) Hematologic/Lymphatic Hematologic/Lymphatic: Denies easy bleeding or easy bruising EXAM Physical Exam Const Vital Signs: 02/25/23 02:31 02/25/23 05:14 Temperature 97.6 F L Temperature Source Temporal Pulse Rate 108 H 91 Respiratory Rate 16 18 Blood Pressure 184/95 H 129/81 H Blood Pressure Mean 124 97 Pulse Ox 99 97 Positive well nourished and well developed General Appearance ED: well developed HEENT HEENT Narrative: Normocephalic atraumatic Eyes PERRL and EOMs intact bilaterally Neck supple Resp normal respiratory effort and clear to auscultation bilaterally Cardio regular rate and regular rhythm Rate: other Other Details: Radial and carotid pulses are equal and symmetric GI non-tender and non-distended GI Narrative: Abdomen is soft nontender and nondistended with hypoactive bowel sounds. No organomegaly noted. Suprapubic tenderness palpated. No voluntary guarding or rigidity. No pulsatile mass or fluid wave. Auscultation: hypoactive bowel sounds Palpation: soft Back/Spine no CVA tenderness Back/Spine Narrative: No bony deformity or step-off of the thoracic or lumbar spine no midline pain with palpation. No saddle anesthesia. Negative straight leg raise. No CVA pain noted. There is pain noted along the left lateral to anterior lateral lower rib cage regions 8-12 that worsens with palpation as well as sidebending and rotation. Extremity normal to inspection Neuro oriented x3 and CN's II-XII intact bilaterally Sensorium / Orientation: alert Psych mental status grossly normal Skin no rashes or lesions noted Skin Narrative: No overlying erythema or warmth to suggest infection No ecchymosis or abrasion to suggest trauma MDM MDM MDM Narrative Medical decision making narrative: Patient presented to the ER hypertensive otherwise with stable vitals. He reported pain along the lateral aspect of his left sided back that was worse with motion. History and exam indicates this is most likely musculoskeletal but as there is possibility for UTI versus pyelonephritis versus kidney stone I did elect to perform a urine sample. As there is no report or signs of trauma and there is no midline pain did not feel there is need for imaging studies. Patient is not having loss of bowel or bladder control and he denies IV drug use or concern for cauda equina or epidural abscess is low as well. Urine sample revealed no blood going against kidney stone is 85% of all stones had blood. There are also no signs of infection going against UTI or pyelonephritis. Patient was treated with Toradol and Norflex and did have improvement of his pain. Therefore at this time as physical exam and work-up does not reveal any overt signs of infection I have low concern for trauma as there is no report or signs of this and symptoms have improved he is otherwise safe for discharge History & Record Review Discussion w/independent historian: Patient and Family Lab Data Attestation: I reviewed the patient's lab results. Labs: Laboratory Results - last 24 hr 02/25/23 03:15 Urine Color Yellow Urine Clarity Clear Urine pH 7.0 Ur Specific [place] 1.010 Urine Protein Negative Urine Glucose (UA) Normal Urine Ketones Negative Urine Occult Blood 25 H Urine Nitrite Negative Urine Bilirubin Negative Urine Urobilinogen Normal Ur Leukocyte Esterase Negative Urine RBC 0 SEEN Urine WBC 0 SEEN Ur Squamous Epith Cells 0 SEEN Urine Bacteria 0 SEEN Urine Mucus 0 SEEN Discharge Plan Triage Chief Complaint: Back ED Provider: Carlos Alberto Garza Dx/Rx/DC Orders Clinical Impression: Spasm of back muscles, Back pain, Benign prostatic hyperplasia Instructions: ED Back Pain (Acute or Chronic), ED Back Spasm, No Trauma Prescriptions: New methocarbamol 500 mg tablet 500 mg PO 4X/DAY PRN PRN (Reason: Muscle pain/spasm) Qty: 40 0RF No Action ibuprofen 600 MG tablet 600 mg PO Q6H PRN PRN (Reason: Pain) Qty: 20 0RF acetaminophen 500 MG tablet 500 - 1,000 mg PO Q6H PRN PRN (Reason: pain/fever) finasteride [Proscar] 5 mg tablet 5 mg PO DAILY tamsulosin [Flomax] 0.4 mg Capsule 0.4 mg PO QHS ciprofloxacin HCl [Cipro] 250 mg tablet 250 mg PO DAILY Qty: 20 0RF cephalexin 500 mg capsule 500 mg PO TID 5 Days Qty: 15 0RF meclizine 25 mg tablet 25 mg PO TID PRN (Reason: dizziness) Qty: 30 0RF Primary Care Provider: Hans Ochoa Referrals: Hans Ochoa MD [Primary Care Provider] - Activity Restrictions/Additional Instructions: Your urine sample shows no sign of infection indicating your pain is most likely musculoskeletal in nature. Continue your home medications along with Tylenol and/or ibuprofen for pain control and add the muscle relaxer for improved symptom control. If you have any further concerns or worsening symptoms please return for repeat evaluation Disposition Disposition: Home, Self Care Discharge Date/Time: 02/25/23 05:15
[2023-02-25 05:14] VITALS: BP 129/81; PULSE 91; RESP 18; O2SAT 97
== END 2023-02-25 05:15 | disposition home or self-care (01) ==
PROVIDERS: Emergency Provider Emergency Medicine; PCP Family Medicine; Visit Provider Emergency Medicine
DX: M62.830 Muscle spasm of back (principal); M54.9 Dorsalgia, unspecified; N40.0 Benign prostatic hyperplasia without lower urinary tract symptoms; Z87.891 Personal history of nicotine dependence
CPT/HCPCS: 81001; 96372; 99282

== ENCOUNTER 2024-05-30 00:54 | Emergency (ER) | payer MEDICARE, SELFPAY ==
[2024-05-30 00:56] VITALS: BP 183/102; PULSE 93; RESP 18; TEMP 35.8; O2SAT 97; BMI 26.9
[2024-05-30 00:59] VITALS: BP 183/102; PULSE 109; RESP 18; TEMP 35.8; O2SAT 97
--- NOTE | 2024-05-30 01:10 | CT_ITS ---
EXAM: CT ABDOMEN AND PELVIS WITHOUT INTRAVENOUS CONTRAST CLINICAL INDICATION: flank pain TECHNIQUE: Helically acquired images were obtained of the abdomen and pelvis without intravenous contrast. This CT exam was performed using one or more of the following dose reduction techniques: automated exposure control, adjustment of the mA and/or kV according to patient size, and/or use of iterative reconstruction technique. RADIATION DOSE: CTDIvol = 6.28 mGy, DLP = 335.89 mGy-cm COMPARISON: CT abdomen pelvis 01/24/2022 FINDINGS: LOWER THORAX: Unremarkable. Lung bases are clear. No cardiomegaly. No significant pericardial effusion. ABDOMEN: LIVER: Unremarkable. Homogeneous. GALLBLADDER AND BILE DUCTS: Multiple stones in the gallbladder. No gallbladder distention or wall edema. No intra- or extrahepatic biliary ductal dilation. PANCREAS: Unremarkable. No focal cystic mass. SPLEEN: Benign calcified granulomas in the spleen. ADRENALS: Unremarkable. No nodules. KIDNEYS AND URETERS: No ureteral stone or renal obstruction. Small simple cyst in the left kidney. No follow-up imaging is recommended per consensus recommendations based on imaging criteria. Normal renal size and position. STOMACH AND BOWEL: Unremarkable. No stomach or bowel distention. No focal inflammatory change. PELVIS: APPENDIX: The appendix is normal. BLADDER: Unremarkable. REPRODUCTIVE: Unremarkable as visualized. No mass. ABDOMEN and PELVIS: INTRAPERITONEAL SPACE: Unremarkable. No ascites or other fluid collection. No free air. BONES/JOINTS: Degenerative changes of the spine. No suspicious lytic or blastic abnormality. SOFT TISSUES: Unremarkable. No discrete abdominal or pelvic wall hernia. VASCULATURE: Moderate atherosclerotic calcifications of the abdominal aorta without dilation. LYMPH NODES: Unremarkable. No enlarged lymph nodes. CT/Abdomen/Pelvis without Cont IMPRESSION: 1. No acute findings in the abdomen/pelvis. 2. Multiple stones in the gallbladder. Electronically Signed: Bob Figueroa MD at 1:52 EST ,
[2024-05-30] MEDS: 0.9% Normal Saline (1000mL) 1,000 ML 999 ML IV (01:14)
[2024-05-30 01:18] LABS: Absolute Lymphocyte Count 3.47 X10^3/uL (0.83-4.51); Absolute Neutrophil Count 3.3 X10^3/uL (2.0-7.7); Basophil# 0.07 X10^3/uL; Basophil% 0.9 % (0-1); Eosinophil# 0.34 X10^3/uL; Eosinophils% 4.2 % (0-5); Hematocrit 42.8 % (40-54); Hemoglobin 13.1 g/dL (13.0-16.5); Lymphocyte # 3.47 X10^3/ul (0.83-4.51); Lymphocyte % 43.3 % (19-41); Mean Corp Hgb Conc 30.6 g/dL (32-36); Mean Corpuscular Hgb 26.9 pg (27.0-32.0); Mean Corpuscular Volume 87.9 fL (80-94); Mean Platelet Vol. 10.3 fl (6.2-12.0); Monocyte# 0.77 X10^3/uL; Monocyte% 9.6 % (0-10); NRBC Flagged by Analyzer 0 % (0-5); Neutrophil # 3.33 X10^3/uL (2.7-7.7); Neutrophil % 41.6 % (47-70); Platelet Count 302 K/mm3 (150-450); RBC Distribution Width CV 14.2 % (11.6-14.6); RBC Distribution Width SD 45.6 fl (35.1-43.9); Red Blood Count 4.87 M/mm3 (4.6-6.2)
[2024-05-30 01:34] LABS: Anion Gap 7 (5-15); BUN 21 mg/dL (7-18); BUN/Creat Ratio 22.9 RATIO (10-20); Calcium,Total 8.6 mg/dL (8.5-10.1); Chloride 106 mmol/L (98-107); Creatinine, Serum 0.92 mg/dL (0.70-1.30); EST Glomerular Filtration Rate 83 mL/min (>60); Est Glom Filt Rate - Afr Amer 101 mL/min (>60); Estimated Creatinine Clearance 51.05 ml/min; Glucose 122 mg/dL (74-106); Potassium 3.8 mmol/L (3.5-5.1); Sodium Level 140 mmol/L (136-145)
[2024-05-30 02:00] VITALS: BP 184/98; PULSE 107; RESP 18; TEMP 35.8; O2SAT 96
--- NOTE | 2024-05-30 02:03 | EDS_ITS ---
HPI History of Present Illness Chief Complaint: Flank Pain Informant: patient and family Narrative Narrative: Patient is 89-year-old male with history of BPH. He states this evening around 9 or 10:00 he noticed bilateral flank/low back pain that he felt was slightly more intense on the left. He states he tried to go to sleep but had a sensation of pressure that he describes as needing to urinate. He states when he did so the urine was dark and appeared bloody and he believes he passed a clot. He states that secondary to the pain and the presence of blood he was concern for infection and/or kidney stone and with this presents [facility] for [facility]. Patient denies any history of bleeding disorder or blood thinner use. Of note he states he has had spontaneous resolution of his symptoms upon arrival to the ER [facility] Medical History Wears hearing aid Loss of hearing Wears glasses Wears dentures Ambulates with cane Difficulty chewing Former smoker Home Medications ?Medication ?Instructions ?Recorded ?Last Taken ?Type acetaminophen 500 mg tablet 500 - 1,000 mg PO Q6H PRN PRN 08/31/18 Unknown History pain/fever aspirin 81 mg tablet,delayed 81 mg PO DAILY 05/30/24 Unknown History release (Adult Aspirin Regimen) Allergy/AdvReac Type Severity Reaction Status Date / Time No Known Allergies Allergy Verified 05/30/24 00:56 Surgical History History of hernia surgery (~1998) History of left knee surgery (~195) History of transurethral resection of prostate (~2018) Social History Smoking Status: Former smoker ROS ROS ED Constitutional Constitutional ED: Denies chills or fever(s) ENT ENT ED: Denies sore throat Cardiovascular Cardiovascular: Denies chest pain Respiratory/Chest Respiratory/Chest: Denies cough or dyspnea Gastrointestinal Gastrointestinal: Denies abdominal pain, diarrhea, nausea or vomiting Genitourinary Genitourinary ED: Reports hematuria; Denies dysuria or urinary frequency Musculoskeletal Musculoskeletal: Reports back pain Integumentary Denies rash Neurologic Neurologic: Denies headache(s) Hematologic/Lymphatic Hematologic/Lymphatic: Denies easy bleeding or easy bruising EXAM Physical Exam Const Vital Signs: 05/30/24 00:56 05/30/24 00:59 05/30/24 02:00 Temperature 96.5 F L 96.5 F L 96.5 F L Temperature Source Axillary Oral Oral Pulse Rate 93 109 H 107 H Respiratory Rate 18 18 18 Blood Pressure 183/102 H 183/102 H 184/98 H Blood Pressure Mean 129 129 126 Pulse Ox 97 97 96 Oxygen Delivery Method Room Air Room Air Room Air 05/30/24 02:56 05/30/24 03:06 Temperature 97.6 F L Temperature Source Pulse Rate 87 87 Respiratory Rate 18 18 Blood Pressure 167/97 H 167/97 H Blood Pressure Mean 120 120 Pulse Ox 95 95 Oxygen Delivery Method Room Air Positive well nourished and well developed General Appearance ED: well developed; Negative for pallor HEENT HEENT Narrative: Normocephalic atraumatic Eyes PERRL and EOMs intact bilaterally General Eye ED: Negative for scleral icterus Neck supple Neck Narrative: No nuchal rigidity or meningeal signs Resp normal respiratory effort and clear to auscultation bilaterally Cardio regular rate and regular rhythm Rate: other Other Details: Heart is regular rate and rhythm without murmurs rubs or gallops Radial and carotid pulses are equal and symmetric GI normal to inspection, nondistended, normoactive bowel sounds, non-tender, non- distended and no masses GI Narrative: Abdomen is soft nontender and nondistended with normal active bowel sounds No voluntary guarding or rigidity or pulsatile mass Auscultation: normoactive bowel sounds Palpation: soft Back/Spine Back/Spine Narrative: Faint/mild left CVA pain Extremity normal to inspection Neuro oriented x3, CN's II-XII intact bilaterally and no sensory deficits noted Sensorium / Orientation: alert Motor Exam: strength 5/5 throughout Psych mental status grossly normal Skin no rashes or lesions noted and no wounds Skin Narrative: No overlying soft tissue changes to suggest trauma or infection General Skin Exam: Negative for jaundice or pallor MDM MDM MDM Narrative Medical decision making narrative: Patient arrived to the ER hypertensive but otherwise with stable vitals. He reported bilateral flank/low back pain slightly worse in the left at home while at rest. He denied loss of bowel or bladder control or IV drug use going against cauda equina or epidural abscess. He reported that he felt a pressure sensation and when he urinated there was blood/clots. There is concern this could be rupture of a prostatic vessel versus hemorrhagic cystitis versus kidney stone. Patient does not have physical exam findings of urinary retention but there is concern for potential renal cyst or acute kidney injury. Basic blood work was obtained and shows no signs of acute blood loss anemia or thrombocytopenia. Kidney function was normal going against CAITY and the patient's urine sample showed blood consistent with history but no bacteria going against UTI/pyonephritis. Noncontrast CT did not reveal any kidney stone or cyst. Moreover the patient had spontaneous resolution of pain. Therefore with overall negative workup and spontaneous resolution of pain I feel patient most likely passed a kidney stone prior to arrival and without infection or CAITY there is no need for further workup and he is otherwise safe for discharge. History & Record Review Discussion w/independent historian: Patient and Family Lab Data Attestation: I reviewed the patient's lab results. Labs: Laboratory Results - last 24 hr 05/30/24 05/30/24 01:08 02:17 WBC 8.0 RBC 4.87 Hgb 13.1 Hct 42.8 MCV 87.9 MCH 26.9 L MCHC 30.6 L RDW Std Deviation 45.6 H RDW Coeff of Jorge A 14.2 Plt Count 302 MPV 10.3 Immature Gran % (Auto) 0.400 Neut % (Auto) 41.6 L Lymph % (Auto) 43.3 H Lee % (Auto) 9.6 Eos % (Auto) 4.2 Baso % (Auto) 0.9 Absolute Neuts (auto) 3.3 Absolute Lymphs (auto) 3.47 Nucleated RBC % 0 Sodium 140 Potassium 3.8 Chloride 106 Carbon Dioxide 27.0 Anion Gap 7 BUN 21 H Creatinine 0.92 Estim Creat Clear Calc 51.05 Est GFR (MDRD) Af Amer 101 Est GFR (MDRD) Non-Af 83 BUN/Creatinine Ratio 22.9 H Glucose 122 H Calcium 8.6 Urine Color Yellow Urine Clarity Cloudy Urine pH 6.0 Ur Specific [place] 1.015 Urine Protein 30 H Urine Glucose (UA) Normal Urine Ketones Negative Urine Occult Blood 250 H Urine Nitrite Negative Urine Bilirubin Negative Urine Urobilinogen Normal Ur Leukocyte Esterase 500 H Urine RBC 10-25 SEEN Urine WBC 10-25 SEEN Ur Squamous Epith Cells 0 SEEN Urine Bacteria 0 SEEN Urine Mucus 0 SEEN Radiography Diagnostic Testing: Clinical Impression(s) from Imaging Studies Abdomen/Pelvis CT 05/30/24 01:10 IMPRESSION: 1. No acute findings in the abdomen/pelvis. 2. Multiple stones in the gallbladder. Electronically Signed: Bob Figueroa MD at 1:52 EST , Discharge Plan Triage Chief Complaint: Flank Pain ED Provider: Carlos Alberto Garza Dx/Rx/DC Orders Clinical Impression: Hematuria, Benign prostatic hyperplasia, Hypertension Instructions: ED Flank Pain, Uncertain Cause, ED Hematuria Prescriptions: No Action acetaminophen 500 MG tablet 500 - 1,000 mg PO Q6H PRN PRN (Reason: pain/fever) aspirin [Adult Aspirin Regimen] 81 mg tablet,delayed release (DR/EC) 81 mg PO DAILY Primary Care Provider: Hans Ochoa Referrals: Shlomo Jack MD [Med Staff - Active Staff] - Hans Ochoa MD [Primary Care Provider] - Activity Restrictions/Additional Instructions: Your urine showed blood consistent with your history but no sign of infection/UTI. Your kidney function is normal. Your CT scan did not reveal any signs of infection or kidney stone. However with your history of side pain/back pain and blood in the urine I do feel that you had a stone earlier this evening which you spontaneously passed. Please follow-up with urology regarding the hematuria/blood in your urine and return to the ER should you have any further concerns Print Language: Mongolian Disposition Disposition: Home, Self Care
[2024-05-30 02:31] LABS: Bacteria 0 SEEN /hpf (None Seen); Mucous, Urine 0 SEEN /hpf (<or=2+); Squamous Epithelial Cells - UA 0 SEEN /hpf (0-5)
[2024-05-30 02:33] LABS: Color, Urine Yellow (Yellow); Glucose, Dipstick Normal (Normal); Ketone-Dipstick Negative (Negative); Leukocyte Esterase-Dipstick 500 /ul (Negative); Nitrite-Dipstick Negative (Negative); Occult Blood-Urine 250 /ul (Negative); Protein-Dipstick 30 mg/dl (Negative); Specific Gravity, Urine 1.015 (1.002-1.030); Urine Bilirubin Dipstick Negative (Negative); Urine Clarity Cloudy (Clear); Urine Urobilinogen Normal (Normal)
[2024-05-30 02:47] LABS: Red Blood Cells-Urine 10-25 SEEN /hpf (0-5); White Blood Cells 10-25 SEEN /hpf (0-5)
[2024-05-30 02:56] VITALS: BP 167/97; PULSE 87; RESP 18; O2SAT 95
[2024-05-30 03:06] VITALS: BP 167/97; PULSE 87; RESP 18; TEMP 36.4; O2SAT 95
== END 2024-05-30 03:20 | disposition home or self-care (01) ==
PROVIDERS: Emergency Provider Emergency Medicine; PCP Family Medicine; Visit Provider Emergency Medicine
DX: R31.9 Hematuria, unspecified (principal); I10 Essential (primary) hypertension; N40.0 Benign prostatic hyperplasia without lower urinary tract symptoms; Z87.891 Personal history of nicotine dependence; Z79.82 Long term (current) use of aspirin
CPT/HCPCS: 74176; 80048; 81001; 85025; 96360; 96361; 99283; A4216

== ENCOUNTER 2024-07-17 17:26 | Emergency (ER) | payer MEDICARE, SELFPAY ==
[2024-07-17] VITALS (12 sets, daily range): BP systolic 48–160; BP diastolic 23–101; PULSE 49–121; RESP 4–38; TEMP 36.1; O2SAT 50–100; BMI 25.7
--- NOTE | 2024-07-17 16:36 | EKG12_ITS ---
Test Reason : Blood Pressure : */* mmHG Vent. Rate : 117 BPM Atrial Rate : * BPM P-R Int : * ms QRS Dur : 102 ms QT Int : 350 ms P-R-T Axes : * 34 20 degrees QTcB Int : 488 ms Atrial fibrillation with rapid ventricular response Incomplete right bundle branch block Abnormal ECG Confirmed by KHADRA BYNUM, RIAZ ([id number]), pictures editor KAILEE BRASHER ([id number]) on 07/22/2024 11:10:19 AM Referred By: Manjeet Babb Confirmed By: RIAZ BABB MD
--- NOTE | 2024-07-17 18:02 | ED.RN ---
pt unresponsive, family @ bedside. Family wish to honor pt living will to have no life saving measures done. Dr. Tali BYNUM @ bedside discussing case with pt. pt becomes more awake, LMA removed [id number]. Nasal Canula applied.
--- NOTE | 2024-07-17 18:04 | CPS ---
pt LMA removed changed to a DNR status
--- NOTE | 2024-07-17 18:39 | CM.ED ---
Social Work SW spoke with family including niece, nieces , and nephew. Family states that patient has expressed that he does not want any life sustaining treatments done. Family is requesting that patient becomes a DNRCC which is what patient requested in his living will. SW spoke with family regarding a hospice consult, family would like referral made. SW contacted [facility] and requested patient be assessed for their inpatient unit. Antonia Basurto, FINANCIAL RECRUITER, PARA EDUCATOR
[2024-07-17] MEDS: Lorazepam 2 MG/ML WCH Syringe 1 MG IV ×2 (19:38→22:13)
--- NOTE | 2024-07-17 21:46 | EDS_ITS ---
HPI History of Present Illness Chief Complaint: Unresponsive Narrative Narrative: History and physical is limited secondary to patient condition. An 89-year-old male brought in by EMS with decreased mental status and questionable cardiac arrest. Per EMS and family, patient was on his way to be taken to a specialist for difficulty breathing. His family states that he has had increased difficulty breathing over the last few days. Per EMS, on their arrival he was slumped over in a wheelchair and was unresponsive. He may have had agonal breathing. And route, he was very bradycardic and required chest compressions. They transmitted an initial EKG which was read by the ED physician as STEMI. However, they sent a second EKG later which showed more tachycardia versus atrial fibrillation with RVR. EMS states that they inserted an eye gel and that he required Ambu bag ventilation. Additionally, they state that he has a living will, but no DNR order. [facility] Medical History Wears hearing aid Loss of hearing Wears glasses Wears dentures Ambulates with cane Difficulty chewing Former smoker Home Medications ?Medication ?Instructions ?Recorded ?Last Taken ?Type acetaminophen 500 mg tablet 500 - 1,000 mg PO Q6H PRN PRN 08/31/18 Unknown History pain/fever aspirin 81 mg tablet,delayed 81 mg PO DAILY 05/30/24 U nknown History release (Adult Aspirin Regimen) Allergy/AdvReac Type Severity Reaction Status Date / Time No Known Allergies Allergy Verified 05/30/24 00:56 Surgical History History of left knee surgery (~195) History of transurethral resection of prostate (~2018) History of hernia surgery (~1998) Social History Smoking Status: Former smoker ROS ROS ED Review of Systems ROS Unobtainable: due to mental status and other Details: I gel in place EXAM Physical Exam Narrative Exam Narrative: Afebrile. Vital signs noted. GCS 3 T. No spontaneous movements. Agonal respirations. Cardiovascular examination reveals a tachycardia. Lungs are clear to auscultation bilaterally. Abdomen is soft and nondistended. Const Vital Signs: 07/17/24 17:27 07/17/24 17:38 07/17/24 17:56 Temperature 97 F L Temperature Source Temporal Pulse Rate 121 H 111 H Respiratory Rate 15 38 H Respiratory Effort Agonal Respiratory Pattern Gasping Blood Pressure 120/82 H 141/88 H Blood Pressure Mean 94 105 Pulse Ox 100 90 Oxygen Delivery Method Ambu-Bag Nasal Cannula Oxygen Flow Rate (L/min) 5 07/17/24 18:26 07/17/24 18:30 07/17/24 19:00 Temperature Temperature Source Pulse Rate 102 H 110 H 113 H Respiratory Rate 28 H 30 H 25 H Respiratory Effort Respiratory Pattern Blood Pressure 148/88 H 146/89 H 160/101 H Blood Pressure Mean 108 108 120 Pulse Ox 85 84 79 Oxygen Delivery Method Nasal Cannula Nasal Cannula Nasal Cannula Oxygen Flow Rate (L/min) 5 5 2 07/17/24 19:30 07/17/24 20:00 07/17/24 20:30 Temperature Temperature Source Pulse Rate 100 108 H 99 Respiratory Rate 25 H 30 H 28 H Respiratory Effort Respiratory Pattern Blood Pressure 156/94 H 84/51 L 85/59 L Blood Pressure Mean 114 62 67 Pulse Ox 69 55 68 Oxygen Delivery Method Nasal Cannula Nasal Cannula Nasal Cannula Oxygen Flow Rate (L/min) 2 2 2 07/17/24 21:00 07/17/24 21:30 07/17/24 22:00 Temperature Temperature Source Pulse Rate 90 88 108 H Respiratory Rate 29 H 28 H 29 H Respiratory Effort Respiratory Pattern Blood Pressure 94/58 L 113/73 141/85 H Blood Pressure Mean 70 86 103 Pulse Ox 81 80 91 Oxygen Delivery Method Nasal Cannula Nasal Cannula Nasal Cannula Oxygen Flow Rate (L/min) 2 2 2 07/17/24 22:30 Temperature Temperature Source Pulse Rate 49 L Respiratory Rate 4 L Respiratory Effort Respiratory Pattern Blood Pressure 48/23 L Blood Pressure Mean 31 Pulse Ox 50 Oxygen Delivery Method Nasal Cannula Oxygen Flow Rate (L/min) 2 MDM MDM MDM Narrative Medical decision making narrative: Upon arrival, patient is being bagged easily. Respiratory states there is no difficulty in bagging the patient's. He does have a rapid heart rate and palpable pulses, but decreased responses. I read his living will, and his niece who is his DURABLE POWER OF CONSTRUCTION TECHNICIAN is currently at the bedside. She states that she had a discussion with the patient and he did not want any resuscitative measures. While the patient started to awaken more and was a little more responsive, gagging on the i-gel, as he is DO NOT RESUSCITATE and wants to be comfort care only, this was removed. Otherwise, I would suggest intubation and withdrawal of care later. However, case management/social work did speak with the family as well and they want to proceed with making him DO NOT RESUSCITATE comfort care only. Hence, I do not feel that given his status of DO NOT RESUSCITATE comfort care only that he requires any laboratory work or chest x- ray. Additionally, I spoke with Dr. Babb with cardiology and told him that the initial EKG may have showed ST elevation, but code STEMI was canceled as discussion with his niece stated that he wanted to be DNR CC. She would also like a hospice consult. Hospice is currently in the emergency department to see if he is meeting requirement for inpatient hospice at their facility. Patient was mildly agitated and was given Ativan intravenously. Currently, he is no longer tachycardic, but he has decreasing pulse ox and was placed on nasal cannula oxygen. Disposition is pending but anticipated transfer to hospice. Of note, patient did require rectal suppository of Tylenol. His blood pressure and heart rate started to slowly decline. Hospice did request Robinul which was ordered as well. Upon repeat examination, there are no spontaneous respirations, no chest rise, no auscultated heart sounds, no corneal reflex. Patient pronounced at 2252 by myself. 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 Disposition is in ED. History & Record Review Discussion w/independent historian: Family Management Discussion w/another healthcare provider: hand bindery assembly worker/Case management and Other (Hospice) Discharge Plan Triage Chief Complaint: Unresponsive ED Provider: Fredi Cesar Dx/Rx/DC Orders Clinical Impression: Unresponsive, DNR (do not resuscitate) discussion, DNR (do not resuscitate), Encounter for hospice care Prescriptions: No Action acetaminophen 500 MG tablet 500 - 1,000 mg PO Q6H PRN PRN (Reason: pain/fever) aspirin [Adult Aspirin Regimen] 81 mg tablet,delayed release (DR/EC) 81 mg PO DAILY Primary Care Provider: Hans Ochoa Referrals: Hans Ochoa MD [Primary Care Provider] - Print Language: Uzbek Disposition Disposition: Hospice in Medical Facility Discharge Location: [facility]
[2024-07-17] MEDS: Glycopyrrolate 0.2 MG/ML Vial 0.1 MG IV (22:43)
[2024-07-17] MEDS: Acetaminophen 650 MG Suppository RC (22:43)
--- NOTE | 2024-07-17 23:08 | ED.RN ---
No IV fluids given within the last our of life.
--- NOTE | 2024-07-17 23:46 | ED.RN ---
This nurse called to bedside for no signs of life. No heart beat heard thru occultation.
== END 2024-07-18 02:13 ==
PROVIDERS: Emergency Provider Emergency Medicine; PCP Family Medicine; Referring Provider Specialist; Visit Provider Emergency Medicine
DX: R40.4 Transient alteration of awareness (principal); R94.31 Abnormal electrocardiogram [ECG] [EKG]; Z66 Do not resuscitate; Z51.5 Encounter for palliative care; Z87.891 Personal history of nicotine dependence
CPT/HCPCS: 93005; 96374; 96376; 99252; 99285; A4216; G0463